=== PATIENT | male | born 1940 | race Caucasian/White ===

== ENCOUNTER 2017-11-08 17:02 | Inpatient (IN) | payer OTHER ==
[~2017-11-08] VITALS: Ht 175.3 cm; Wt 70.0 kg
[~2017-11-08 17:02] MED LIST changes: -ACET325 PO; -BISA5EC PO; -HYDR1TAB94 PO; -HYDRA25 PO; -Hair, Skin & N1 EACH PO; -METCAR500 PO; -PROBIOTIC & AC1 EACH PO; -Prinivil10 MG PO; -TAMS.4ER PO; -TRAZ50 PO
[2017-11-08 18:55] LABS: BASOPHILS ABSOLUTE AUTO 0.03 K/mm3 (0.00-0.23); BASOPHILS PERCENT AUTO 0 % (0-2); EOSINOPHILS ABSOLUTE AUTO 0.01 K/mm3 (0.00-0.68); EOSINOPHILS PERCENT AUTO 0 % (0-6); Hematocrit 39.7 % (37.0-53.0); Hemoglobin 13.2 g/dL (13.5-17.5); IMMATURE GRAN ABSOLUTE AUTO 0.03 K/mm3 (0.00-0.10); IMMATURE GRAN PERCENT AUTO 0 % (0-1); LYMPHOCYTES ABSOLUTE AUTO 0.97 K/mm3 (0.84-5.20); LYMPHOCYTES PERCENT AUTO 9 % (21-46); MONOCYTES ABSOLUTE AUTO 0.82 K/mm3 (0.16-1.47); MONOCYTES PERCENT AUTO 8 % (4-13); Mean Corpuscular HGB 29.9 pg (26.0-34.0); Mean Corpuscular HGB Conc 33.2 g/dL (31.5-36.5); Mean Corpuscular Volume 90 fL (80-100); Mean Platelet Volume 10.5 fL (9.1-12.4); NEUTROPHILS ABSOLUTE AUTO 8.55 K/mm3 (1.96-9.15); NEUTROPHILS PERCENT AUTO 82 % (41-73); Platelet Count 181 K/mm3 (150-400); RDW Coefficient Variation 12.7 % (11.7-14.2); RDW Standard Deviation 41.8 fL (35.1-46.3); Red Blood Cell Count 4.42 M/mm3 (4.30-5.90); White Blood Cell Count 10.41 K/mm3 (4.00-11.30)
[2017-11-08 19:07] LABS: Alanine Aminotransfer (ALT/SGP 15 U/L (12-78); Albumin, Blood 3.4 g/dL (3.4-5.0); Albumin/Globulin Ratio 0.8 (0.8-1.8); Alk Phos 78 U/L (50-136); Anion Gap 9 mmol/L (6-16); Aspartate Aminotrans (AST/SGOT 16 U/L (12-37); Bilirubin, Total 0.7 mg/dL (0.1-1.0); Blood Urea Nitrogen 11 mg/dL (8-24); Bun/Creatinine Ratio 15.7 (12.0-20.0); CO2, Blood 26 mmol/L (21-32); Calcium, Blood 9.1 mg/dL (8.5-10.1); Chloride, Blood 105 mmol/L (98-108); Glomerular Filtration Rate >60 (60-); Glucose, Blood 133 mg/dL (70-99); Sodium, Blood 140 mmol/L (136-145); Total Protein, Blood 7.4 g/dL (6.4-8.2)
[2017-11-09 05:02] LABS: BASOPHILS ABSOLUTE AUTO 0.02 K/mm3 (0.00-0.23); BASOPHILS PERCENT AUTO 0 % (0-2); EOSINOPHILS ABSOLUTE AUTO 0.06 K/mm3 (0.00-0.68); EOSINOPHILS PERCENT AUTO 1 % (0-6); Hematocrit 33.5 % (37.0-53.0); Hemoglobin 11.1 g/dL (13.5-17.5); IMMATURE GRAN ABSOLUTE AUTO 0.02 K/mm3 (0.00-0.10); IMMATURE GRAN PERCENT AUTO 0 % (0-1); LYMPHOCYTES ABSOLUTE AUTO 1.34 K/mm3 (0.84-5.20); LYMPHOCYTES PERCENT AUTO 16 % (21-46); MONOCYTES ABSOLUTE AUTO 0.82 K/mm3 (0.16-1.47); MONOCYTES PERCENT AUTO 10 % (4-13); Mean Corpuscular HGB 29.6 pg (26.0-34.0); Mean Corpuscular HGB Conc 33.1 g/dL (31.5-36.5); Mean Corpuscular Volume 89 fL (80-100); Mean Platelet Volume 10.8 fL (9.1-12.4); NEUTROPHILS ABSOLUTE AUTO 5.97 K/mm3 (1.96-9.15); NEUTROPHILS PERCENT AUTO 73 % (41-73); Platelet Count 169 K/mm3 (150-400); RDW Coefficient Variation 12.7 % (11.7-14.2); RDW Standard Deviation 41.5 fL (35.1-46.3); Red Blood Cell Count 3.75 M/mm3 (4.30-5.90); White Blood Cell Count 8.23 K/mm3 (4.00-11.30)
[2017-11-09 05:41] LABS: Albumin, Blood 2.6 g/dL (3.4-5.0); Anion Gap 6 mmol/L (6-16); Blood Urea Nitrogen 14 mg/dL (8-24); Bun/Creatinine Ratio 18.3 (12.0-20.0); CO2, Blood 29 mmol/L (21-32); Calcium, Blood 8.4 mg/dL (8.5-10.1); Chloride, Blood 107 mmol/L (98-108); Creatinine, Blood 0.77 mg/dL (0.60-1.20); Glomerular Filtration Rate >60 (60-); Glucose, Blood 129 mg/dL (70-99); Phosphorus, Blood 2.8 mg/dL (2.5-4.9); Sodium, Blood 142 mmol/L (136-145)
[2017-11-10 04:22] LABS: BASOPHILS ABSOLUTE AUTO 0.05 K/mm3 (0.00-0.23); BASOPHILS PERCENT AUTO 1 % (0-2); EOSINOPHILS ABSOLUTE AUTO 0.12 K/mm3 (0.00-0.68); EOSINOPHILS PERCENT AUTO 1 % (0-6); Hematocrit 34.2 % (37.0-53.0); Hemoglobin 11.5 g/dL (13.5-17.5); IMMATURE GRAN ABSOLUTE AUTO 0.03 K/mm3 (0.00-0.10); IMMATURE GRAN PERCENT AUTO 0 % (0-1); LYMPHOCYTES PERCENT AUTO 16 % (21-46); MONOCYTES ABSOLUTE AUTO 0.93 K/mm3 (0.16-1.47); MONOCYTES PERCENT AUTO 9 % (4-13); Mean Corpuscular HGB 30.3 pg (26.0-34.0); Mean Corpuscular HGB Conc 33.6 g/dL (31.5-36.5); Mean Corpuscular Volume 90 fL (80-100); Mean Platelet Volume 10.5 fL (9.1-12.4); NEUTROPHILS ABSOLUTE AUTO 7.67 K/mm3 (1.96-9.15); NEUTROPHILS PERCENT AUTO 73 % (41-73); Platelet Count 172 K/mm3 (150-400); RDW Coefficient Variation 12.7 % (11.7-14.2); RDW Standard Deviation 41.9 fL (35.1-46.3)
[2017-11-10 04:40] LABS: Anion Gap 7 mmol/L (6-16); Blood Urea Nitrogen 19 mg/dL (8-24); Bun/Creatinine Ratio 22.4 (12.0-20.0); CO2, Blood 28 mmol/L (21-32); Calcium, Blood 8.2 mg/dL (8.5-10.1); Chloride, Blood 107 mmol/L (98-108); Creatinine, Blood 0.85 mg/dL (0.60-1.20); Glomerular Filtration Rate >60 (60-); Glucose, Blood 104 mg/dL (70-99); Potassium, Blood 4.1 mmol/L (3.5-5.5); Sodium, Blood 142 mmol/L (136-145)
[2017-11-12 04:32] LABS: BASOPHILS ABSOLUTE AUTO 0.03 K/mm3 (0.00-0.23); BASOPHILS PERCENT AUTO 0 % (0-2); EOSINOPHILS ABSOLUTE AUTO 0.19 K/mm3 (0.00-0.68); EOSINOPHILS PERCENT AUTO 2 % (0-6); Hematocrit 35.3 % (37.0-53.0); Hemoglobin 11.6 g/dL (13.5-17.5); IMMATURE GRAN ABSOLUTE AUTO 0.05 K/mm3 (0.00-0.10); IMMATURE GRAN PERCENT AUTO 0 % (0-1); LYMPHOCYTES ABSOLUTE AUTO 1.35 K/mm3 (0.84-5.20); LYMPHOCYTES PERCENT AUTO 12 % (21-46); MONOCYTES ABSOLUTE AUTO 1.09 K/mm3 (0.16-1.47); MONOCYTES PERCENT AUTO 10 % (4-13); Mean Corpuscular HGB 29.6 pg (26.0-34.0); Mean Corpuscular HGB Conc 32.9 g/dL (31.5-36.5); Mean Corpuscular Volume 90 fL (80-100); Mean Platelet Volume 10.1 fL (9.1-12.4); NEUTROPHILS ABSOLUTE AUTO 8.74 K/mm3 (1.96-9.15); NEUTROPHILS PERCENT AUTO 76 % (41-73); Platelet Count 226 K/mm3 (150-400); RDW Coefficient Variation 12.7 % (11.7-14.2); RDW Standard Deviation 41.7 fL (35.1-46.3); Red Blood Cell Count 3.92 M/mm3 (4.30-5.90); White Blood Cell Count 11.45 K/mm3 (4.00-11.30)
[2017-11-12 04:49] LABS: Anion Gap 6 mmol/L (6-16); Blood Urea Nitrogen 23 mg/dL (8-24); Bun/Creatinine Ratio 24.9 (12.0-20.0); CO2, Blood 30 mmol/L (21-32); Calcium, Blood 8.6 mg/dL (8.5-10.1); Chloride, Blood 104 mmol/L (98-108); Creatinine, Blood 0.92 mg/dL (0.60-1.20); Glomerular Filtration Rate >60 (60-); Glucose, Blood 121 mg/dL (70-99); Potassium, Blood 4.2 mmol/L (3.5-5.5); Sodium, Blood 140 mmol/L (136-145)
[2017-11-15] MEDS ORDERED: ACET325 PO (10:21)
[2017-11-15] MEDS ORDERED: Prinivil10 MG PO (10:22)
[2017-11-15] MEDS ORDERED: TAMS.4ER PO (10:22)
[2017-11-15] MEDS ORDERED: HYDR1TAB94 PO (10:23)
== END 2017-11-15 12:47 | DRG 504 ==
LOC: ER 17:02 → MEDS 23:13 → ENPENDDIS 11-15 10:00 → MEDS 11-15 12:47
PROVIDERS: Emergency Medicine; Family Medicine; Hospitalist; Internal Medicine; Podiatrist Foot & Ankle Surgery
PROC: 3E0234Z Introduction of Serum, Toxoid and Vaccine into Muscle, Percutaneous Approach (ICD-10-PCS; 2017-11-09)
PROC: 0Y6S0Z0 Detachment at Left 2nd Toe, Complete, Open Approach (ICD-10-PCS; principal; 2017-11-11 07:30)
PROC: 0Y6U0Z0 Detachment at Left 3rd Toe, Complete, Open Approach (ICD-10-PCS; 2017-11-11 07:30)
DX: M86.172 Other acute osteomyelitis, left ankle and foot (principal); I96 Gangrene, not elsewhere classified; L03.116 Cellulitis of left lower limb; L97.519 Non-pressure chronic ulcer of other part of right foot with unspecified severity; Z23 Encounter for immunization; N40.1 Benign prostatic hyperplasia with lower urinary tract symptoms; R33.8 Other retention of urine
CPT/HCPCS: 36415; 51702; 73630; 80048; 80053; 80069; 82947; 83605; 85025; 85651; 87040; 87071; 87075; 87077; 87147; 87186; 87205; 88305; 88311; 93005; 93010; 93922; 96365; 97116; 97162; 97530; 99285; G8978; G8979; J0171; J0690; J2250; J2370; J2543; J3010; J7030; J7120

== ENCOUNTER → 2017-11-08 | Outpatient (CLI) | payer OTHER ==
[~2017-11-08] MED LIST: ACET325 PO; BISA5EC PO; HYDR1TAB94 PO; HYDRA25 PO; Hair, Skin & N1 EACH PO; METCAR500 PO; OXYACE5T PO; PROBIOTIC & AC1 EACH PO; PROM25 PO; Prinivil10 MG PO; SILSUL1TC TOP; TAMS.4ER PO; TRAZ50 PO
== END | disposition home or self-care (01) ==
LOC: LAB SHORT 17:31 → LAB 17:31
DX: L03.116 Cellulitis of left lower limb (principal)
CPT/HCPCS: 87070; 87077; 87147; 87186; 87205

== ENCOUNTER 2018-01-10 14:08 | Inpatient (IN) | payer OTHER ==
[~2018-01-10] VITALS: Ht 175.3 cm; Wt 69.9 kg
[~2018-01-10 14:08] MED LIST changes: +ACET325 PO; +HYDR1TAB94 PO; +Prinivil10 MG PO; +TAMS.4ER PO
[2018-01-10] MEDS ORDERED: BISA5EC PO (14:59)
[2018-01-10] MEDS ORDERED: Hair, Skin & N1 EACH PO (14:59)
[2018-01-10] MEDS ORDERED: PROBIOTIC & AC1 EACH PO (14:59)
[2018-01-10 15:46] LABS: BASOPHILS ABSOLUTE AUTO 0.03 K/mm3 (0.00-0.23); BASOPHILS PERCENT AUTO 0 % (0-2); EOSINOPHILS PERCENT AUTO 0 % (0-6); Hematocrit 41.7 % (37.0-53.0); IMMATURE GRAN ABSOLUTE AUTO 0.07 K/mm3 (0.00-0.10); IMMATURE GRAN PERCENT AUTO 0 % (0-1); LYMPHOCYTES ABSOLUTE AUTO 0.85 K/mm3 (0.84-5.20); LYMPHOCYTES PERCENT AUTO 4 % (21-46); MONOCYTES ABSOLUTE AUTO 0.66 K/mm3 (0.16-1.47); MONOCYTES PERCENT AUTO 3 % (4-13); Mean Corpuscular HGB 29.5 pg (26.0-34.0); Mean Corpuscular HGB Conc 33.6 g/dL (31.5-36.5); Mean Corpuscular Volume 88 fL (80-100); Mean Platelet Volume 10.7 fL (9.1-12.4); NEUTROPHILS ABSOLUTE AUTO 17.63 K/mm3 (1.96-9.15); NEUTROPHILS PERCENT AUTO 92 % (41-73); Platelet Count 196 K/mm3 (150-400); RDW Coefficient Variation 13.2 % (11.7-14.2); RDW Standard Deviation 42.5 fL (35.1-46.3); Red Blood Cell Count 4.75 M/mm3 (4.30-5.90); White Blood Cell Count 19.24 K/mm3 (4.00-11.30)
[2018-01-10 15:59] LABS: Source, Urine Catheter
[2018-01-10 16:02] LABS: Alanine Aminotransfer (ALT/SGP 20 U/L (12-78); Albumin, Blood 3.8 g/dL (3.4-5.0); Albumin/Globulin Ratio 1.1 (0.8-1.8); Alk Phos 95 U/L (50-136); Anion Gap 7 mmol/L (6-16); Aspartate Aminotrans (AST/SGOT 30 U/L (12-37); Bilirubin, Total 0.9 mg/dL (0.1-1.0); Blood Urea Nitrogen 14 mg/dL (8-24); Bun/Creatinine Ratio 18.4 (12.0-20.0); CO2, Blood 25 mmol/L (21-32); Calcium, Blood 8.9 mg/dL (8.5-10.1); Chloride, Blood 109 mmol/L (98-108); Creatinine, Blood 0.76 mg/dL (0.60-1.20); Globulin, Blood 3.5 g/dL (2.2-4.0); Glomerular Filtration Rate >60 (60-); Glucose, Blood 135 mg/dL (70-99); Potassium, Blood 4.2 mmol/L (3.5-5.5); Sodium, Blood 141 mmol/L (136-145); Total Protein, Blood 7.3 g/dL (6.4-8.2)
[2018-01-10 16:04] LABS: Bilirubin, Urine Neg (Neg); Blood, Urine 5+ (Neg); Glucose Qualitative, Urine Neg (Neg); Ketones, Urine 2+ (Neg); Leukocyte Esterase, Urine Neg (Neg); Nitrite, Urine Neg (Neg); Protein, Urine 3+ (Neg); Urobilinogen, Urine NORM (Normal)
[2018-01-10 16:14] LABS: Appearance, Urine Clear (Clear); Color, Urine Yellow (P-Yellow); White Blood Cells, Urine 0-2 /hpf (0-5)
[2018-01-10 16:16] LABS: Bacteria Few /hpf; Squamous Epithelial Cells Not Seen /hpf (Few)
[2018-01-11 04:18] LABS: BASOPHILS ABSOLUTE AUTO 0.03 K/mm3 (0.00-0.23); BASOPHILS PERCENT AUTO 0 % (0-2); EOSINOPHILS PERCENT AUTO 0 % (0-6); Hematocrit 31.3 % (37.0-53.0); Hemoglobin 10.5 g/dL (13.5-17.5); IMMATURE GRAN ABSOLUTE AUTO 0.03 K/mm3 (0.00-0.10); IMMATURE GRAN PERCENT AUTO 0 % (0-1); LYMPHOCYTES ABSOLUTE AUTO 1.54 K/mm3 (0.84-5.20); LYMPHOCYTES PERCENT AUTO 12 % (21-46); MONOCYTES ABSOLUTE AUTO 1.28 K/mm3 (0.16-1.47); MONOCYTES PERCENT AUTO 10 % (4-13); Mean Corpuscular HGB 29.8 pg (26.0-34.0); Mean Corpuscular HGB Conc 33.5 g/dL (31.5-36.5); Mean Corpuscular Volume 89 fL (80-100); Mean Platelet Volume 10.8 fL (9.1-12.4); NEUTROPHILS ABSOLUTE AUTO 9.57 K/mm3 (1.96-9.15); NEUTROPHILS PERCENT AUTO 77 % (41-73); Platelet Count 155 K/mm3 (150-400); RDW Coefficient Variation 13.7 % (11.7-14.2); RDW Standard Deviation 44.4 fL (35.1-46.3); Red Blood Cell Count 3.52 M/mm3 (4.30-5.90); White Blood Cell Count 12.45 K/mm3 (4.00-11.30)
[2018-01-11 04:31] LABS: Bun/Creatinine Ratio 21.6 (12.0-20.0); Calcium, Blood 8.3 mg/dL (8.5-10.1); Creatinine, Blood 1.25 mg/dL (0.60-1.20); International Normalized Ratio 1.1; Potassium, Blood 4.5 mmol/L (3.5-5.5); Prothrombin Time Results 11.5 Sec (9.7-11.5)
[2018-01-12 04:10] LABS: BASOPHILS ABSOLUTE AUTO 0.03 K/mm3 (0.00-0.23); BASOPHILS PERCENT AUTO 0 % (0-2); EOSINOPHILS ABSOLUTE AUTO 0.04 K/mm3 (0.00-0.68); EOSINOPHILS PERCENT AUTO 0 % (0-6); Hematocrit 27.8 % (37.0-53.0); Hemoglobin 9.1 g/dL (13.5-17.5); IMMATURE GRAN ABSOLUTE AUTO 0.05 K/mm3 (0.00-0.10); IMMATURE GRAN PERCENT AUTO 0 % (0-1); LYMPHOCYTES ABSOLUTE AUTO 1.61 K/mm3 (0.84-5.20); LYMPHOCYTES PERCENT AUTO 14 % (21-46); MONOCYTES ABSOLUTE AUTO 1.27 K/mm3 (0.16-1.47); MONOCYTES PERCENT AUTO 11 % (4-13); Mean Corpuscular HGB 30.2 pg (26.0-34.0); Mean Corpuscular HGB Conc 32.7 g/dL (31.5-36.5); Mean Corpuscular Volume 92 fL (80-100); Mean Platelet Volume 10.7 fL (9.1-12.4); NEUTROPHILS ABSOLUTE AUTO 8.16 K/mm3 (1.96-9.15); NEUTROPHILS PERCENT AUTO 73 % (41-73); Platelet Count 117 K/mm3 (150-400); RDW Coefficient Variation 13.8 % (11.7-14.2); RDW Standard Deviation 46.9 fL (35.1-46.3); Red Blood Cell Count 3.01 M/mm3 (4.30-5.90); White Blood Cell Count 11.16 K/mm3 (4.00-11.30)
[2018-01-12 04:29] LABS: Anion Gap 4 mmol/L (6-16); Blood Urea Nitrogen 28 mg/dL (8-24); Bun/Creatinine Ratio 23.9 (12.0-20.0); CO2, Blood 29 mmol/L (21-32); Chloride, Blood 108 mmol/L (98-108); Creatinine, Blood 1.17 mg/dL (0.60-1.20); Glomerular Filtration Rate >60 (60-); Glucose, Blood 129 mg/dL (70-99); Potassium, Blood 4.3 mmol/L (3.5-5.5); Sodium, Blood 141 mmol/L (136-145)
[2018-01-13 05:49] LABS: BASOPHILS ABSOLUTE AUTO 0.03 K/mm3 (0.00-0.23); BASOPHILS PERCENT AUTO 0 % (0-2); EOSINOPHILS ABSOLUTE AUTO 0.14 K/mm3 (0.00-0.68); EOSINOPHILS PERCENT AUTO 1 % (0-6); Hematocrit 25.6 % (37.0-53.0); Hemoglobin 8.5 g/dL (13.5-17.5); IMMATURE GRAN ABSOLUTE AUTO 0.05 K/mm3 (0.00-0.10); IMMATURE GRAN PERCENT AUTO 0 % (0-1); LYMPHOCYTES ABSOLUTE AUTO 1.41 K/mm3 (0.84-5.20); LYMPHOCYTES PERCENT AUTO 12 % (21-46); MONOCYTES ABSOLUTE AUTO 1.21 K/mm3 (0.16-1.47); MONOCYTES PERCENT AUTO 11 % (4-13); Mean Corpuscular HGB 30.4 pg (26.0-34.0); Mean Corpuscular HGB Conc 33.2 g/dL (31.5-36.5); Mean Corpuscular Volume 91 fL (80-100); Mean Platelet Volume 11.3 fL (9.1-12.4); NEUTROPHILS ABSOLUTE AUTO 8.71 K/mm3 (1.96-9.15); NEUTROPHILS PERCENT AUTO 75 % (41-73); Platelet Count 112 K/mm3 (150-400); RDW Coefficient Variation 13.6 % (11.7-14.2); RDW Standard Deviation 45.9 fL (35.1-46.3); White Blood Cell Count 11.55 K/mm3 (4.00-11.30)
== END 2018-01-13 15:10 | DRG 482 ==
LOC: ER 14:08 → SURS 15:10
PROVIDERS: Emergency Medicine; Internal Medicine; Orthopaedic Surgery
PROC: BQ11ZZZ Fluoroscopy of Left Hip (ICD-10-PCS; 2018-01-11)
PROC: 0QH734Z Insertion of Internal Fixation Device into Left Upper Femur, Percutaneous Approach (ICD-10-PCS; principal; 2018-01-11 12:30)
DX: S72.102A Unspecified trochanteric fracture of left femur, initial encounter for closed fracture (principal); W19.XXXA Unspecified fall, initial encounter; I10 Essential (primary) hypertension; N40.0 Benign prostatic hyperplasia without lower urinary tract symptoms; Z89.422 Acquired absence of other left toe(s); Z79.899 Other long term (current) drug therapy
CPT/HCPCS: 36415; 51702; 71045; 72192; 80048; 80053; 81001; 85025; 85610; 85730; 93005; 93010; 96372; 96374; 96376; 97110; 97162; 97165; 97530; 97535; 99285; C1713; C1769; G8978; G8979; G8987; G8988; J0690; J1650; J3010; J7030; J7120

== ENCOUNTER 2018-03-13 16:58 | Emergency (ER) | payer OTHER ==
[~2018-03-13] VITALS: Ht 175.3 cm; Wt 70.3 kg
[~2018-03-13 16:58] MED LIST changes: +BISA5EC PO; +Hair, Skin & N1 EACH PO; +PROBIOTIC & AC1 EACH PO
[2018-03-13] MEDS ORDERED: TRAZ50 PO (17:15)
[2018-03-13] MEDS ORDERED: METCAR500 PO (17:15)
[2018-03-13] MEDS ORDERED: HYDRA25 PO (17:15)
[2018-03-13 18:25] LABS: Calcium, Ionized (POC) 1.21 mmol/L (1.10-1.46); Chloride (POC) 102 mmol/L (98-108); Creatinine (POC) 0.9 mg/dL (0.8-1.3); Glucose (ISTAT POC) 120 mg/dL (70-99); Hemoglobin (POC) 10.9 g/dL (13.5-17.5); Sodium (POC) 142 mmol/L (135-148); Total CO2 (POC) 27 mmol/L (21-32)
== END 2018-03-13 22:42 | disposition home or self-care (01) ==
LOC: ER 16:58
PROVIDERS: Emergency Medicine
DX: I10 Essential (primary) hypertension (principal); Z79.899 Other long term (current) drug therapy; Z96.642 Presence of left artificial hip joint
CPT/HCPCS: 71260; 80047; 84484; 85014; 93005; 93010; 96374; 96375; 99285; J0360; J2060; Q9967

== ENCOUNTER → 2019-07-02 | Outpatient (CLI) | payer OTHER ==
[~2019-07-02] MED LIST changes: +HYDRA25 PO; +METCAR500 PO; +TRAZ50 PO
[2019-07-02 14:48] LABS: Bilirubin, Urine Neg (Neg); Blood, Urine Neg (Neg); Glucose Qualitative, Urine Neg (Neg); Ketones, Urine Neg (Neg); Leukocyte Esterase, Urine Neg (Neg); Nitrite, Urine Neg (Neg); Protein, Urine Neg (Neg); Urobilinogen, Urine NORM (Normal)
[2019-07-02 15:08] LABS: Appearance, Urine Clear (Clear); Color, Urine Yellow (P-Yellow)
== END | disposition home or self-care (01) ==
LOC: LAB 11:33 → LAB SHORT 11:33
PROVIDERS: Internal Medicine
DX: N39.0 Urinary tract infection, site not specified (principal)
CPT/HCPCS: 81003

== ENCOUNTER → 2019-08-17 | Outpatient (CLI) | payer OTHER ==
[~2019-08-17] MED LIST changes: +AMLO10 PO; +Anti-Diarrheal2 MG; +BISA10S PR; +Calmoseptine Oi71 GM; +Fleet Enema132 ML PR; +Flomax0.4 MG PO; +HYDCHL25 PO; +LACT10SY PO; +MILK OF MA400 MG/5 M PO; +Muri-Lube Minera2 ML; +ONDA4ODT MM; +SERT25 PO; +TRIA15CR3 TOP; +TUMS500 MG PO
[2019-08-17 20:47] LABS: Bilirubin, Urine Neg (Neg); Blood, Urine 3+ (Neg); Glucose Qualitative, Urine Neg (Neg); Ketones, Urine Neg (Neg); Leukocyte Esterase, Urine 1+ (Neg); Nitrite, Urine Neg (Neg); Protein, Urine Neg (Neg); Specific Gravity, Urine 1.015 (1.003-1.022); Urobilinogen, Urine NORM (Normal)
[2019-08-17 20:56] LABS: Appearance, Urine Hazy (Clear); Color, Urine Yellow (P-Yellow)
[2019-08-17 21:05] LABS: Bacteria Few /hpf; Squamous Epithelial Cells Few /hpf (Few)
== END ==
LOC: LAB SHORT 14:05 → LAB 14:05
PROVIDERS: Internal Medicine
DX: N39.0 Urinary tract infection, site not specified (principal)
CPT/HCPCS: 81001; 87086

== ENCOUNTER 2019-08-18 07:04 | Emergency (ER) | payer OTHER ==
[~2019-08-18] VITALS: Ht 175.3 cm; Wt 81.2 kg
[~2019-08-18 07:04] MED LIST changes: -AMLO10 PO; -Anti-Diarrheal2 MG; -BISA10S PR; -Calmoseptine Oi71 GM; -Fleet Enema132 ML PR; -Flomax0.4 MG PO; -HYDCHL25 PO; -LACT10SY PO; -MILK OF MA400 MG/5 M PO; -Muri-Lube Minera2 ML; -ONDA4ODT MM; -SERT25 PO; -TRIA15CR3 TOP; -TUMS500 MG PO
[2019-08-18] MEDS ORDERED: AMLO10 PO (07:09)
[2019-08-18] MEDS ORDERED: HYDCHL25 PO (07:10)
[2019-08-18] MEDS ORDERED: Muri-Lube Minera2 ML (07:10)
[2019-08-18] MEDS ORDERED: TAMS.4ER PO (07:11)
[2019-08-18] MEDS ORDERED: SERT25 PO (07:11)
[2019-08-18] MEDS ORDERED: TRIA15CR3 TOP (07:12)
[2019-08-18] MEDS ORDERED: TRAZ50 PO (07:12)
[2019-08-18] MEDS ORDERED: TUMS500 MG PO (07:12)
[2019-08-18] MEDS ORDERED: MILK OF MA400 MG/5 M PO (07:13)
[2019-08-18] MEDS ORDERED: HYDRA25 PO (07:13)
[2019-08-18] MEDS ORDERED: Anti-Diarrheal2 MG (07:13)
[2019-08-18] MEDS ORDERED: Calmoseptine Oi71 GM (07:14)
[2019-08-18] MEDS ORDERED: Fleet Enema132 ML PR (07:14)
[2019-08-18] MEDS ORDERED: ACET325 PO (07:15)
[2019-08-18] MEDS ORDERED: BISA10S PR (07:15)
[2019-08-18 09:44] LABS: BASOPHILS ABSOLUTE AUTO 0.04 K/mm3 (0.00-0.23); BASOPHILS PERCENT AUTO 0 % (0-2); EOSINOPHILS ABSOLUTE AUTO 0.02 K/mm3 (0.00-0.68); EOSINOPHILS PERCENT AUTO 0 % (0-6); Hematocrit 36.5 % (37.0-53.0); Hemoglobin 11.9 g/dL (13.5-17.5); IMMATURE GRAN ABSOLUTE AUTO 0.04 K/mm3 (0.00-0.10); IMMATURE GRAN PERCENT AUTO 0 % (0-1); LYMPHOCYTES PERCENT AUTO 9 % (21-46); MONOCYTES ABSOLUTE AUTO 1.17 K/mm3 (0.16-1.47); MONOCYTES PERCENT AUTO 9 % (4-13); Mean Corpuscular HGB 30.6 pg (26.0-34.0); Mean Corpuscular HGB Conc 32.6 g/dL (31.5-36.5); Mean Corpuscular Volume 94 fL (80-100); Mean Platelet Volume 9.9 fL (9.1-12.4); NEUTROPHILS PERCENT AUTO 81 % (41-73); Platelet Count 186 K/mm3 (150-400); RDW Standard Deviation 44.8 fL (35.1-46.3); Red Blood Cell Count 3.89 M/mm3 (4.30-5.90); White Blood Cell Count 12.97 K/mm3 (4.00-11.30)
[2019-08-18 09:57] LABS: Source, Urine Clean Catch
[2019-08-18 10:06] LABS: Troponin I <0.015 ng/mL (0.000-0.040)
[2019-08-18 10:07] LABS: Alanine Aminotransfer (ALT/SGP 21 U/L (12-78); Albumin, Blood 3.5 g/dL (3.4-5.0); Alk Phos 74 U/L (50-136); Anion Gap 6 mmol/L (6-16); Aspartate Aminotrans (AST/SGOT 28 U/L (12-37); Bilirubin, Total 0.7 mg/dL (0.1-1.0); Blood Urea Nitrogen 37 mg/dL (8-24); Bun/Creatinine Ratio 18.8 (12.0-20.0); CO2, Blood 26 mmol/L (21-32); Calcium, Blood 9.1 mg/dL (8.5-10.1); Chloride, Blood 111 mmol/L (98-108); Creatinine, Blood 1.97 mg/dL (0.60-1.20); Globulin, Blood 3.5 g/dL (2.2-4.0); Glomerular Filtration Rate 35 (60-); Glucose, Blood 115 mg/dL (70-99); Potassium, Blood 4.4 mmol/L (3.5-5.5); Sodium, Blood 143 mmol/L (136-145)
[2019-08-18 10:17] LABS: Appearance, Urine Clear (Clear); Bilirubin, Urine Neg (Neg); Blood, Urine 5+ (Neg); Color, Urine Yellow (P-Yellow); Glucose Qualitative, Urine Neg (Neg); Ketones, Urine Neg (Neg); Leukocyte Esterase, Urine 1+ (Neg); Nitrite, Urine Neg (Neg); Protein, Urine Neg (Neg); Specific Gravity, Urine 1.015 (1.003-1.022); Urobilinogen, Urine NORM (Normal)
[2019-08-18 10:27] LABS: Bacteria Rare /hpf; Squamous Epithelial Cells Not Seen /hpf (Few); Uric Acid Crystals Mod /hpf
[2019-08-18] MEDS ORDERED: ONDA4ODT MM (10:41)
[2019-08-18] MEDS ORDERED: HYDR1TAB94 PO (10:41)
[2019-08-18] MEDS ORDERED: Flomax0.4 MG PO (10:41)
[2019-08-18] MEDS ORDERED: LACT10SY PO (10:56)
== END 2019-08-18 12:02 | disposition home or self-care (01) ==
LOC: ER 07:04
PROVIDERS: Physician Assistant
DX: N13.2 Hydronephrosis with renal and ureteral calculous obstruction (principal); D64.9 Anemia, unspecified; Z79.899 Other long term (current) drug therapy
CPT/HCPCS: 36415; 74022; 74176; 80053; 81001; 83690; 84484; 85025; 87086; 93005; 93010; 96361; 96374; 99284-25; J2405; J7030

== ENCOUNTER 2019-08-20 01:58 | Emergency (ER) | payer OTHER ==
[~2019-08-20] VITALS: Ht 165.1 cm; Wt 81.7 kg
[~2019-08-20 01:58] MED LIST changes: +AMLO10 PO; +Anti-Diarrheal2 MG; +BISA10S PR; +Calmoseptine Oi71 GM; +Fleet Enema132 ML PR; +Flomax0.4 MG PO; +HYDCHL25 PO; +LACT10SY PO; +MILK OF MA400 MG/5 M PO; +Muri-Lube Minera2 ML; +ONDA4ODT MM; +SERT25 PO; +TRIA15CR3 TOP; +TUMS500 MG PO
[2019-08-20 02:25] LABS: Source, Urine Clean Catch
[2019-08-20 02:29] LABS: Bilirubin, Urine Neg (Neg); Blood, Urine 5+ (Neg); Glucose Qualitative, Urine Neg (Neg); Ketones, Urine 2+ (Neg); Leukocyte Esterase, Urine 2+ (Neg); Nitrite, Urine Neg (Neg); Protein, Urine 2+ (Neg); Urobilinogen, Urine NORM (Normal)
[2019-08-20 02:44] LABS: Amorphous Light (0-Heavy); Appearance, Urine Hazy (Clear); Bacteria Few /hpf; Color, Urine Yellow (P-Yellow); Mucus Light (0-Heavy); Red Blood Cells, Urine 25-50 /hpf (0-2); Squamous Epithelial Cells Rare /hpf (Few)
[2019-08-20 02:44] LABS: BASOPHILS ABSOLUTE AUTO 0.03 K/mm3 (0.00-0.23); BASOPHILS PERCENT AUTO 0 % (0-2); EOSINOPHILS ABSOLUTE AUTO 0.01 K/mm3 (0.00-0.68); EOSINOPHILS PERCENT AUTO 0 % (0-6); Hematocrit 34.4 % (37.0-53.0); Hemoglobin 11.3 g/dL (13.5-17.5); IMMATURE GRAN ABSOLUTE AUTO 0.07 K/mm3 (0.00-0.10); IMMATURE GRAN PERCENT AUTO 0 % (0-1); LYMPHOCYTES ABSOLUTE AUTO 1.15 K/mm3 (0.84-5.20); LYMPHOCYTES PERCENT AUTO 7 % (21-46); MONOCYTES ABSOLUTE AUTO 1.79 K/mm3 (0.16-1.47); MONOCYTES PERCENT AUTO 10 % (4-13); Mean Corpuscular HGB 30.4 pg (26.0-34.0); Mean Corpuscular HGB Conc 32.8 g/dL (31.5-36.5); Mean Corpuscular Volume 93 fL (80-100); Mean Platelet Volume 10.5 fL (9.1-12.4); NEUTROPHILS ABSOLUTE AUTO 14.14 K/mm3 (1.96-9.15); NEUTROPHILS PERCENT AUTO 82 % (41-73); Platelet Count 187 K/mm3 (150-400); RDW Coefficient Variation 12.8 % (11.7-14.2); RDW Standard Deviation 43.8 fL (35.1-46.3); Red Blood Cell Count 3.72 M/mm3 (4.30-5.90); White Blood Cell Count 17.19 K/mm3 (4.00-11.30)
[2019-08-20 03:02] LABS: Albumin, Blood 3.1 g/dL (3.4-5.0); Albumin/Globulin Ratio 0.8 (0.8-1.8); Bilirubin, Total 0.7 mg/dL (0.1-1.0); Bun/Creatinine Ratio 17.9 (12.0-20.0); Calcium, Blood 8.8 mg/dL (8.5-10.1); Creatinine, Blood 1.96 mg/dL (0.60-1.20); Potassium, Blood 4.5 mmol/L (3.5-5.5); Total Protein, Blood 7.1 g/dL (6.4-8.2)
== END 2019-08-20 05:10 | disposition short-term general hospital (02) ==
LOC: ER 01:58
PROVIDERS: Emergency Medicine
DX: K22.8 Other specified diseases of esophagus (principal); D64.9 Anemia, unspecified; Z79.899 Other long term (current) drug therapy
CPT/HCPCS: 36415; 74176; 80053; 81001; 85025; 87086; 93005; 93010; 96361; 96365; 99285-25; J0696; J7120

== ENCOUNTER 2020-02-09 12:12 | Emergency (ER) | payer OTHER ==
[~2020-02-09] VITALS: Ht 172.7 cm; Wt 72.6 kg
[2020-02-12 08:30] LABS: Calcium, Ionized (POC) 1.19 mmol/L (1.10-1.46); Chloride (POC) 102 mmol/L (98-108); Creatinine (POC) 1.3 mg/dL (0.8-1.3); Glucose (ISTAT POC) 140 mg/dL (70-99); Hemoglobin (POC) 12.2 g/dL (13.5-17.5); Sodium (POC) 137 mmol/L (135-148); Total CO2 (POC) 25 mmol/L (21-32)
== END 2020-02-09 15:08 | disposition home or self-care (01) ==
LOC: ER 12:12
PROVIDERS: Emergency Medicine
DX: M79.672 Pain in left foot (principal); R25.1 Tremor, unspecified; D64.9 Anemia, unspecified; Z79.899 Other long term (current) drug therapy; H53.8 Other visual disturbances
CPT/HCPCS: 80047; 85014; 99283

== ENCOUNTER 2020-02-17 12:15 | Emergency (ER) | payer OTHER ==
[~2020-02-17] VITALS: Ht 172.7 cm; Wt 90.7 kg
[2020-02-17 13:34] LABS: BASOPHILS ABSOLUTE AUTO 0.02 K/mm3 (0.00-0.23); BASOPHILS PERCENT AUTO 0 % (0-2); EOSINOPHILS ABSOLUTE AUTO 0.06 K/mm3 (0.00-0.68); EOSINOPHILS PERCENT AUTO 1 % (0-6); Hematocrit 39.5 % (37.0-53.0); Hemoglobin 12.9 g/dL (13.5-17.5); IMMATURE GRAN ABSOLUTE AUTO 0.04 K/mm3 (0.00-0.10); IMMATURE GRAN PERCENT AUTO 1 % (0-1); LYMPHOCYTES ABSOLUTE AUTO 1.28 K/mm3 (0.84-5.20); LYMPHOCYTES PERCENT AUTO 16 % (21-46); MONOCYTES ABSOLUTE AUTO 0.61 K/mm3 (0.16-1.47); MONOCYTES PERCENT AUTO 8 % (4-13); Mean Corpuscular HGB 29.6 pg (26.0-34.0); Mean Corpuscular HGB Conc 32.7 g/dL (31.5-36.5); Mean Corpuscular Volume 91 fL (80-100); Mean Platelet Volume 9.7 fL (9.1-12.4); NEUTROPHILS ABSOLUTE AUTO 6.15 K/mm3 (1.96-9.15); NEUTROPHILS PERCENT AUTO 75 % (41-73); Platelet Count 168 K/mm3 (150-400); RDW Coefficient Variation 13.1 % (11.7-14.2); RDW Standard Deviation 43.9 fL (35.1-46.3); Red Blood Cell Count 4.36 M/mm3 (4.30-5.90); White Blood Cell Count 8.16 K/mm3 (4.00-11.30)
[2020-02-17 13:53] LABS: Anion Gap 2 mmol/L (6-16); Blood Urea Nitrogen 27 mg/dL (8-24); Bun/Creatinine Ratio 22.3 (12.0-20.0); CO2, Blood 28 mmol/L (21-32); Chloride, Blood 107 mmol/L (98-108); Creatinine, Blood 1.21 mg/dL (0.60-1.20); Glomerular Filtration Rate >60 (60-); Glucose, Blood 126 mg/dL (70-99); Potassium, Blood 4.5 mmol/L (3.5-5.5); Sodium, Blood 137 mmol/L (136-145)
[2020-02-17 15:11] LABS: Source, Urine Clean Catch
[2020-02-17 15:19] LABS: Bilirubin, Urine Neg (Neg); Blood, Urine 1+ (Neg); Glucose Qualitative, Urine Neg (Neg); Ketones, Urine Neg (Neg); Leukocyte Esterase, Urine Neg (Neg); Nitrite, Urine Neg (Neg); Protein, Urine Neg (Neg); Urobilinogen, Urine NORM (Normal)
[2020-02-17 15:34] LABS: Color, Urine Pale Yellow (P-Yellow)
[2020-02-17 15:35] LABS: Appearance, Urine Clear (Clear)
[2020-02-17 15:36] LABS: Bacteria Few /hpf; Red Blood Cells, Urine Not Seen /hpf (0-2); Squamous Epithelial Cells Not Seen /hpf (Few); White Blood Cells, Urine Not Seen /hpf (0-5)
[2020-02-17] MEDS ORDERED: Bactrim Ds Tab1 EACH PO (16:02)
[2020-02-18] MEDS ORDERED: SULTRIDS PO (13:10)
== END 2020-02-17 17:10 | disposition home or self-care (01) ==
LOC: ER 12:15
PROVIDERS: Emergency Medicine
DX: N39.0 Urinary tract infection, site not specified (principal); I12.9 Hypertensive chronic kidney disease with stage 1 through stage 4 chronic kidney disease, or unspecified chronic kidney disease; N18.9 Chronic kidney disease, unspecified; H43.399 Other vitreous opacities, unspecified eye; D63.1 Anemia in chronic kidney disease; Z79.899 Other long term (current) drug therapy
CPT/HCPCS: 36415; 51702; 51798; 70450; 71045; 80048; 81001; 85025; 93005; 93010; 99284-25; A9270-GY

== ENCOUNTER 2020-02-19 11:56 | Emergency (ER) | payer OTHER ==
[~2020-02-19] VITALS: Ht 177.8 cm; Wt 81.7 kg
[~2020-02-19 11:56] MED LIST changes: +Bactrim Ds Tab1 EACH PO; +SULTRIDS PO
[2020-02-20] MEDS ORDERED: FERSU300 PO (10:24)
[2020-02-20] MEDS ORDERED: FURO40 PO (10:25)
[2020-02-20] MEDS ORDERED: MINERAL OIL HEAV1 ML BOTHEARS (10:29)
[2020-02-20] MEDS ORDERED: PHENYTOIN SODI100 MG PO (10:31)
[2020-02-20] MEDS ORDERED: POTA10T PO (10:31)
[2020-02-20] MEDS ORDERED: HYDRA25 PO (13:08)
[2020-02-20] MEDS ORDERED: TAMS.4ER PO (13:11)
[2020-02-20] MEDS ORDERED: ZESTORETIC 20-1 EAC3 PO (15:47)
[2020-02-20] MEDS ORDERED: BISA10S PR (15:50)
[2020-02-20] MEDS ORDERED: LOPERAMIDE2 MG PO (15:51)
[2020-02-20] MEDS ORDERED: MILK OF MA400 MG/51 PO (15:52)
[2020-02-20] MEDS ORDERED: ONDA4ODT SL (15:54)
[2020-02-20] MEDS ORDERED: FLEET ENEMA133 ML PR (15:55)
[2020-02-20] MEDS ORDERED: CALMOSEPTINE OI71 GM TOP (15:56)
== END 2020-02-19 13:07 | disposition home or self-care (01) ==
LOC: ER 11:56
DX: H53.8 Other visual disturbances (principal); G25.3 Myoclonus; R56.9 Unspecified convulsions; Z79.899 Other long term (current) drug therapy; D64.9 Anemia, unspecified; I10 Essential (primary) hypertension; N40.0 Benign prostatic hyperplasia without lower urinary tract symptoms
CPT/HCPCS: 36415; 99283

== ENCOUNTER 2020-02-20 10:04 | Inpatient (IN) | payer OTHER ==
[~2020-02-20] VITALS: Ht 175.3 cm; Wt 80.0 kg
[2020-02-20] MEDS ORDERED: FERSU300 PO (10:24)
[2020-02-20] MEDS ORDERED: FURO40 PO (10:25)
[2020-02-20] MEDS ORDERED: MINERAL OIL HEAV1 ML BOTHEARS (10:29)
[2020-02-20] MEDS ORDERED: POTA10T PO (10:31)
[2020-02-20] MEDS ORDERED: PHENYTOIN SODI100 MG PO (10:31)
[2020-02-20 11:26] LABS: Alanine Aminotransfer (ALT/SGP 17 U/L (12-78); Albumin, Blood 3.1 g/dL (3.4-5.0); Albumin/Globulin Ratio 0.9 (0.8-1.8); Alk Phos 78 U/L (50-136); Anion Gap 5 mmol/L (6-16); Aspartate Aminotrans (AST/SGOT 21 U/L (12-37); Bilirubin, Total 0.4 mg/dL (0.1-1.0); Blood Urea Nitrogen 48 mg/dL (8-24); Bun/Creatinine Ratio 19.8 (12.0-20.0); CO2, Blood 29 mmol/L (21-32); Calcium, Blood 8.4 mg/dL (8.5-10.1); Chloride, Blood 103 mmol/L (98-108); Creatinine, Blood 2.43 mg/dL (0.60-1.20); Dilantin (Phenytoin), Total 0.6 ug/mL (10.0-20.0); Globulin, Blood 3.5 g/dL (2.2-4.0); Glomerular Filtration Rate 28 (60-); Glucose, Blood 112 mg/dL (70-99); Potassium, Blood 4.5 mmol/L (3.5-5.5); Sodium, Blood 137 mmol/L (136-145); Total Protein, Blood 6.6 g/dL (6.4-8.2)
[2020-02-20 12:33] LABS: Source, Urine Catheter
[2020-02-20 12:47] LABS: Bilirubin, Urine Neg (Neg); Blood, Urine Neg (Neg); Glucose Qualitative, Urine Neg (Neg); Ketones, Urine Neg (Neg); Leukocyte Esterase, Urine Neg (Neg); Nitrite, Urine Neg (Neg); Protein, Urine Neg (Neg); Urobilinogen, Urine NORM (Normal)
[2020-02-20 12:57] LABS: Appearance, Urine Clear (Clear); Color, Urine Pale Yellow (P-Yellow)
[2020-02-20 13:03] LABS: BASOPHILS ABSOLUTE AUTO 0.03 K/mm3 (0.00-0.23); BASOPHILS PERCENT AUTO 0 % (0-2); EOSINOPHILS ABSOLUTE AUTO 0.05 K/mm3 (0.00-0.68); EOSINOPHILS PERCENT AUTO 1 % (0-6); Hematocrit 36.8 % (37.0-53.0); Hemoglobin 12.1 g/dL (13.5-17.5); IMMATURE GRAN ABSOLUTE AUTO 0.04 K/mm3 (0.00-0.10); IMMATURE GRAN PERCENT AUTO 0 % (0-1); LYMPHOCYTES ABSOLUTE AUTO 1.17 K/mm3 (0.84-5.20); LYMPHOCYTES PERCENT AUTO 11 % (21-46); MONOCYTES ABSOLUTE AUTO 0.95 K/mm3 (0.16-1.47); MONOCYTES PERCENT AUTO 9 % (4-13); Mean Corpuscular HGB 29.4 pg (26.0-34.0); Mean Corpuscular HGB Conc 32.9 g/dL (31.5-36.5); Mean Corpuscular Volume 89 fL (80-100); Mean Platelet Volume 10.1 fL (9.1-12.4); NEUTROPHILS ABSOLUTE AUTO 8.49 K/mm3 (1.96-9.15); NEUTROPHILS PERCENT AUTO 79 % (41-73); Platelet Count 172 K/mm3 (150-400); RDW Coefficient Variation 13.5 % (11.7-14.2); RDW Standard Deviation 44.3 fL (35.1-46.3); Red Blood Cell Count 4.12 M/mm3 (4.30-5.90); White Blood Cell Count 10.73 K/mm3 (4.00-11.30)
[2020-02-20] MEDS ORDERED: HYDRA25 PO (13:08)
[2020-02-20] MEDS ORDERED: TAMS.4ER PO (13:11)
[2020-02-20 13:15] LABS: Creatinine, Urine Random 27.2 mg/dL (27.00-270.00)
--- NOTE | 2020-02-20 15:00 | NUR ---
PT ARRIVED TO ROOM AT 1440 FROM ED BY STRETCHER. WAS SHAKING AND HAD SEVERE TREMORS AND WAS ACTING LIKE HE WAS SHORT OF BREATH. REMOVED HIS MASK AND ENCOURAGED HIM TO BREATH IN THROUGH HIS NOSE AND OUT HIS MOUTH. ALSO LET HIM KNOW HE IS SAFE AND EXPLAINED WHAT WE WERE DOING PRIOR TO DOING IT. HIS TREMORS STOPPED AFTER ASSURING HIM.
[2020-02-20] MEDS ORDERED: ZESTORETIC 20-1 EAC3 PO (15:47)
[2020-02-20] MEDS ORDERED: BISA10S PR (15:50)
[2020-02-20] MEDS ORDERED: LOPERAMIDE2 MG PO (15:51)
[2020-02-20] MEDS ORDERED: MILK OF MA400 MG/51 PO (15:52)
[2020-02-20] MEDS ORDERED: ONDA4ODT SL (15:54)
[2020-02-20] MEDS ORDERED: FLEET ENEMA133 ML PR (15:55)
[2020-02-20] MEDS ORDERED: CALMOSEPTINE OI71 GM TOP (15:56)
--- NOTE | 2020-02-20 18:24 | NUR ---
SHIFT SUMMARY PT UP IN CHAIR. DINNER PLACED IN FRONT OF HIM AND HE SAID HE DIDN'T WANT IT. WHEN IT WAS LEFT IN FRONT OF HIM HE STARTED YELLING UNTIL IT WAS REMOVED. HEARD LAUGHTING LOUDLY IN ROOM AND WHEN CHECKED ON HIM HE SAID HE HAD THOUGHT OF SOMETHING REALLY FUNNY. BOTH THERAPIES IN TO SEE PT THIS AFTERNOON AND REPORTS PT APPEARS TO HAVE VISUAL DISTURBANCES AND STRUGGLING WITH HANDLING HIS EXTREMITIES.
--- NOTE | 2020-02-21 04:02 | NUR ---
SHIFT SUMMARY ASSUMED CARE OF PT AT 1900. PT IS A/OX4, BUT IS VERY ANXIOUS. PT DENIES N.T IN EXTREMTIES AND HAS EPISODES OF CONVUSIONS THAT HE DOESNT KNOW WHERE THEY COME FROM. SHE STATES THAT HE DOESNT FEEL ANY PAIN DURING THEM BUT SOMETIMES HE CANT CATCH HIS BREATH. PT REFUSED TO LAY IN HIS BED UNTIL AOUND 0100. AFTER LYING IN BED FOR 5MIN, PATIENT CALLED TO BE PUT BACK INTO HIS CHAIR. EDUCATED PT ABOUT BED SORES AND REASSUED PT THAT WE WERE WATCHING HIM DURING THE NIGHT. PT SLEPT ABOUT TWO HOURSE BEFORE HE CALLED TO BE PUT BACK INTO THE CHAIR AGAIN. PT ADRIÁN IS STILL REDDENED AND SUGGESTED PT STAY IN BED UNTIL BREAKFAST. HEART SOUNDS REGULAR, PT HAS SLIGHT CRACKLES IN THE BASES OF HIS LUNGS, DENIES SOB/CP AT THIS TIME. CATHETER DRAINING CLEAR YELLOW URINE. 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 PT WAS A 2P MINIMAL ASSIST TO BED WITH WALKER AND GAITBELT. PT HAS IS CONVULSIONS WHEN HE BECOMES VERY ANXIOUS AND IS REDIRECTED BY RELAXATION TECHNIQUES. CALL LIGHT IN REACH, BED IN LOWEST POSTION, WILL CONTINUE TO MONITOR UNTIL DAYSHIFT NURSE ARRIVES.
[2020-02-21 04:44] LABS: Hematocrit 35.2 % (37.0-53.0); Hemoglobin 11.3 g/dL (13.5-17.5); Mean Corpuscular HGB 29.2 pg (26.0-34.0); Mean Corpuscular HGB Conc 32.1 g/dL (31.5-36.5); Mean Corpuscular Volume 91 fL (80-100); Mean Platelet Volume 10.1 fL (9.1-12.4); Platelet Count 161 K/mm3 (150-400); RDW Coefficient Variation 13.4 % (11.7-14.2); RDW Standard Deviation 45.1 fL (35.1-46.3); Red Blood Cell Count 3.87 M/mm3 (4.30-5.90); White Blood Cell Count 6.78 K/mm3 (4.00-11.30)
[2020-02-21 05:03] LABS: Bun/Creatinine Ratio 20.6 (12.0-20.0); Calcium, Blood 8.1 mg/dL (8.5-10.1); Creatinine, Blood 1.94 mg/dL (0.60-1.20); Potassium, Blood 4.1 mmol/L (3.5-5.5)
--- NOTE | 2020-02-21 10:00 | NUR ---
DISCUSSED POLICY WITH PT ABOUT CHANGING CATHETERS WHEN PT COMES TO HOSPITAL AND GETS ADMITTED. PT STATED HE DIDN'T WANT IT CHANGE DUE TO IT BEING PLACED ONLY A FEW DAYS AGO. UA HAD BEEN SENT BY ED THAT WAS NEGATIVE FOR UTI DURING 02/19 ED VISIT WITH SUBSEQUENT ADMISSION.
--- NOTE | 2020-02-21 13:18 | NUR ---
Upon receiving a referral for a spiritual care referral, I visit patient. One of patient's 1st statements is, "If I had a gun, I would kill myself." We talk at great length as therapeutic alliance is being formed. Patient tells me about his work and family history, about his spirituality and about his his living arrangements at [facility] in [place]. During our conversation patient would burst into tears over everything from the words to a Antelmo Cartagena song to possible extinction of the Snow Leopard. Patient would spontaniously make the sounds of the Leopard or his dog who . Patient talks about his fear of not knowing what is going on with his health and about his inability to control his body or emotions. I listen empathically, reinforce helpful attitudes and practices, normalize patient's experience and provide companionship and a calming presence. Patient responds well and shows signs of increased peace. I will continue to remain available to patient and family.
--- NOTE | 2020-02-21 18:39 | NUR ---
SHIFT SUMMARY PT HAS BEEN MAKING COMMENTS ABOUT FEELING ISOLATED AND ALONE. HAS HAD UNCONTROLLABLE LAUGHING AND CRYING. HAS HAD TREMORS ON AND OFF TODAY BUT SEEMED TO LESSEN DAY PROGRESSED. STATES HE STILL HAS VISUAL DISTURBANCES. AT ONE POINT THERE WAS A LOUD YELL IN HIS ROOM AND HE REPORTED HE WAS TRYING TO MAKE THE NOISE OF A SNOW LEOPARD. EXPLAINED INAPPROPRIATENESS OF THE NOISE AND PT SAID HE WOULDN'T DO IT AGAIN BUT THEN IN ANOTHER BREATH SAID WHEN THE URGE CAME ON HE COULDN'T HELP IT. HAS WANTED TO BE UP IN HIS CHAIR ALL DAY AND WITHIN VIEW OF HALLWAY OR STAFF. OCC CALLING OUT AND STATES HE JUST NEEDS SOMEONE TO TALK TO. 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 NEEDS CUING FOR BREATHING TECHNIQUE WHEN HE STARTED TO GASP FOR BREATH AND START TREMORING.
[2020-02-22 05:00] LABS: Albumin, Blood 2.8 g/dL (3.4-5.0); Anion Gap 4 mmol/L (6-16); Blood Urea Nitrogen 32 mg/dL (8-24); Bun/Creatinine Ratio 23.7 (12.0-20.0); CHOL/HDL RATIO 4.6; CO2, Blood 25 mmol/L (21-32); Calcium, Blood 7.8 mg/dL (8.5-10.1); Chloride, Blood 108 mmol/L (98-108); Cholesterol 116 mg/dL (50-200); Creatinine, Blood 1.35 mg/dL (0.60-1.20); Glomerular Filtration Rate 54 (60-); Glucose, Blood 103 mg/dL (70-99); HDL Cholesterol 25 mg/dL (>39); Low Density Lipoprotein Chol 76 mg/dL (0-110); Phosphorus, Blood 2.5 mg/dL (2.5-4.9); Potassium, Blood 4.4 mmol/L (3.5-5.5); Sodium, Blood 137 mmol/L (136-145); Triglycerides 74 mg/dL (30-160); Very Low Density Lipoprot Chol 14 mg/dL (6-32)
--- NOTE | 2020-02-22 05:18 | NUR ---
SHIFT SUMMARY ASSUMED CARE OF PT AT 1900. PT IS A/OX4, BUT FORGETFUL AT TIMES. HEART SOUNDS REGULAR, LUNG SOUNDS CLEAR, DENIES CP/SOB AT THIS TIME. PT IS STILL HAVING BODY SPASMS, PT NEEDS TO BE REMINDED TO BREATH AND THAT HE IS NOT ALONE THROUGH THIS. PT STATED THAT HE WAS STILL HAVING VISUAL DISTURBANCES. PT WAS MORE CALM TONIGHT WHEN GETTING INTO BED. BUTTOCK IS STILL SLIGHTLY REDDENED. PT IS A 1P MINIMAL ASSIST TO BED. CATHETER DRANING CLEAR YELLOW URINE. NO ACUTE CHANGES NOTED T/O THE NIGHT. PT SLEPT MOST OF THE NIGHT. CALL LIGHT IN REACH, BED IN LOWEST POSTION, WILL CONTINUE TO MONITOR UNTIL DAYSHIFT NURSE ARRIVES.
--- NOTE | 2020-02-22 11:59 | NUR ---
Spiritual care visit conducted. Patient picks up where he left off form my visit yesterday in telling me stories of his life. Patient had a few crying episodes that where rather loud but made no screams and no animal noises. Patient seems to be a good historian. Patient tells me the pain of his divorce and about his his grown children and how they handled the divorce back it happened to the present. Patient gets emotional about a Flowity song and is able to tell me the words and why it has impacted him so much. I listen empathically and provide companionship, pastoral program counselor and prayer. Patient responds well and voices appreciation for my time and the prayer. I will continue to be available to patient and family.
--- NOTE | 2020-02-22 14:09 | NUR ---
PT TRANSFERRED TO SCU 344 AT THIS TIME. BEDSIDE REPORT GIVEN TO KARY COLBERT RN. PT AXO X3 COOPERATIVE WITH CARE THOUGH PT ANXIOUS THROUGHOUT THE SHIFT. DR WOLF NOTIFIED OF TRANSFER. UPON ASSESSMENT OF PATIENT, PT COMPLAINED THAT HE WAS "HAVING A SEIZURE." DR WOLF NOTIFED RIGHT AWAY. PT CALMED WITH THERAPEUTIC COMMINICATION. PTS SISTER EXPLAINED TO THIS NURSE THAT PATIENT HAS AUTISM AND NEEDS EMOTIONAL SUPPORT/ SITTER. MEDICAL STAFF SPECIALIST IN TO TALK WITH PATIENT. PT UP TO CHAIR, ATTEMPTING TO STAND UP AT TIMES. BED IN LOW POSITION, CALL LIGHT WITHIN REACH.
--- NOTE | 2020-02-22 16:51 | NUR ---
SHIFT SUMMARY PATIENT TRANSFERED FROM FLOOR TO SCU. PATIENT DENIES PAIN, NAUSEA, AND SHORTNESS OF BREATH. PATIENT ANXIOUS UPON ARRIVAL TO NEW ROOM BUT SETTLED IN QUICKLY. PATIENT SITTING QUIETLY WATCHING TV. PATIENT PLEASANT AND COOPERATIVE WITH CARE. PATIENT UP ONE ASSIST W/GAITBELT AND FWW. DIALLO PATENT AND DRAINING. CALL LIGHT IN REACH.
--- NOTE | 2020-02-22 20:29 | NUR ---
ATTEMPTED TO RETURN SISTER, MICH'Jules, PHONE CALL NO ANSWER AT THE NUMBER PROVIDED.
--- NOTE | 2020-02-22 21:16 | NUR ---
PT STATUS PT YELLING OUT ABOUT HIS HEARTBURN. I DID PULL ORAL ANTACIDS BUT HE REFUSED TO TAKE THEM. HE THEN YELLED OUT AGAIN ABOUT PAINFUL HIPS. WE DID REPLACE HIS CHAIR WITH A MORE COMFORTABLE RECLINER. HE DOES HAVE LABILE MOODS.
--- NOTE | 2020-02-23 03:57 | NUR ---
SHIFT SUMMARY ADMITTED FOR ARF. 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 FULL CODE. LIVES AT [facility]. PLAN IS FOR DC TO SNF FOR REHAB. ALSO SEE UROLOGY OUTPATIENT FOR RETENTION/BPH. NICOLE IS PSYCH CONSULT. HE HAS LABILE MOODS, SISTER INFORMS THAT HE HAS AUTISM. HE IS 1 ASSIST W/FWW & GAITBELT TO BS. HE HAD A RECENT UTI, BUT IS NOW CLEAR. HE IS ON RA, DIALLO IN PLACE, CARDIAC DIET. NS INFUSING @ 75 ML/HR. HX: OSEOMYLITIS/GANGREEN - [address] LEFT TOES AMPUTATED, FREQUENT FALLS. CONSULT NICOLE ORDERED SEROQUEL YESTERDAY. I WAS VERBALLY INFORMED THAT THE 50 MG DOSE WAS SUPPOSED TO BE A BEDTIME DOSE, BUT THE EMAR DOES NOT REFLECT THAT. I WILL ASK DAY NURSE TO CLARIFY.
--- NOTE | 2020-02-23 15:48 | NUR ---
SHIFT SUMMARY PT AWAKE DURING SHIFT REPORT THI AM. HAS BEEN PLEASANT AND CO-OP WITH CARE. PT BECAME ANXIOUS THIS AM, WHEN SITTING ON EOB, EATING BREAKFAST; FEARFUL OF FALLING OOB. PT CALMED AND THEN ASSISTED TO CHAIR AT BS TO FINISH EATING. PT REMAINED IN THE CHAIR UNTIL AFTER LUNCH, WHEN HE CALLED TO GO BACK TO BED. PT DOES WELL MOST OF THE TIME, BUT WILL HAVE PERIODS OF ACUTE ONSET ANXIETY EVERY FEW HOURS. SEROQUEL GIVEN PER EMAR, WHICH SEEMS TO HELP. DR WOLF IN TO SEE PT THIS AM. SEROQUEL ORDER ON EMAR CLARIFIED. INFORMED PT OF D/C TO REHAB, TO GET STRONGER, BEFORE RETURNING TO [facility]. PT AGREEABLE. DIALLO CATH TO REMAIN IN PLACE AT D/C PT TO SEE UROLOGY OUTPT. PER PT, DIALLO CATH WAS ALREADY IN PLACE WHEN ADMITTED. PT'S DAUGHTER CALLED TO CK ON PT AND LATER CALLED HIM. PT ENCOURAGED WHEN FAMILY CALLED. RESTING QUIETLY AT THIS TIME. NO C/O. CALL LT IN REACH.
--- NOTE | 2020-02-23 17:09 | NUR ---
PT HAVING ANOTHER EMOTIONAL OUTBURST. SEROQUEL GIVEN PER EMAR. PT AWARE OF EMOTIONS, BUT REPORTS "I CAN'T HELP IT" AND CALMS QUICKLY WHEN COMFORTED. PT ASSISTED TO SHOWER AT THIS TIME, PER PT REQUEST, INSTEAD OF BED BATH. 2P ASSIST INTO SHOWER. PT WEAK AND UNSTEADY, BUT IS COMFORTABLE HOLDING ONTO FWW.
--- NOTE | 2020-02-23 20:52 | NUR ---
PATIENT HAD EMOTIONAL OUTBURST. PATIENT ABLE TO CALM DOWN QUICKLY. SCHEDULE SEROQUEL DUE AND GIVEN ONCE PATIENT BACK TO BASELINE. TOOK MEDICATIONS WHOLE AND BACK TO WATCHING TV AND RESTING IN CHAIR. CHAIR ALARM ACTIVATED.
--- NOTE | 2020-02-24 04:13 | NUR ---
SHIFT SUMMARY PATIENT HAD ONE EMOTIONAL OUTBURST THIS SHIFT. EVENT SUBSIDED QUICKLY. PATIENT AXOX 3 AND ONE ASSIST TO CHAIR. DIALLO PATENT AND DRAINING. PIV REMAINS INTACT. REPORTED NECK/BACK PAIN X ONE AND RECEIVED TYLENOL PER EMAR. VSS/AFEBRILE. DENIES SOB AND N/V. PATIENT SAT IN CHAIR FIRST PART OF SHIFT TO HELP WITH BACK PAIN. COOPERATIVE WITH CARE. CALL LIGHT IN REACH. BED IN LOWEST POSITION AND ALARM ACTIVATED. WILL CONTINUE TO MONITOR UNTIL DAY SHIFT NURSE ASSUMES CARE.
--- NOTE | 2020-02-24 16:26 | NUR ---
SHIFT SUMMARY PT CONTINUES TO IMPROVE. MOBILITY IMPROVED WELL EMOTIONAL OUTBURSTS DECREASED. PT ONLY BECAME UPSET ONE TIME TO PRESENT THIS SHIFT. PT UP TO CHAIR AND ABLE TO AMBULATE AROUND IN TODAY, USING FWW AND 1P ASSIST. PT HAS BEEN PLEASANT AND CO-OP WITH CARE. FAMILY CALLED TO TALK TO PT, WHICH HELPS WELL. NO C/O. NO S/SX OF DISTRESS NOTED OR REPORTED. DIALLO CATH REMAINS PATENT. PT TO D/C WITH DIALLO AGAIN UNTIL ABLE TO SEE UROLOGY OUTPT. RESTING QUIETLY AT THIS TIME. CALL LT IN REACH. BED ALARM ON FOR SAFETY.
--- NOTE | 2020-02-25 01:39 | NUR ---
PATIENT RESTING IN BED. NO EMOTIONAL OUTBURST AT THIS TIME. CALL LIGHT IN REACH.
--- NOTE | 2020-02-25 03:15 | NUR ---
SHIFT SUMMARY PATIENT HAD NO ACUTE CHANGES OBSERVED. NO EMOTIONAL OUTBURST OBSERVED. AXOX 3 WITH HX AUTISM. ONE ASSIST TO BSC. DIALLO PATENT AND DRAINING. TAKES MEDICATION WHOLE WITH WATER. PIV REMAINS INTACT. VSS/AFEBRILE. DENIES PAIN, SOB, AND N/V. COOPERATIVE WITH CARE. BED IN LOWEST POSITION AND BED ALARM ACTIVATED. CALL LIGHT IN REACH. WILL CONTINUE TO MONITOR UNTIL DAY SHIFT NURSE ASSUMES CARE.
[2020-02-25 05:03] LABS: Hematocrit 37.4 % (37.0-53.0); Mean Corpuscular HGB 29.1 pg (26.0-34.0); Mean Corpuscular HGB Conc 32.1 g/dL (31.5-36.5); Mean Corpuscular Volume 91 fL (80-100); Mean Platelet Volume 9.9 fL (9.1-12.4); Platelet Count 168 K/mm3 (150-400); RDW Coefficient Variation 12.8 % (11.7-14.2); RDW Standard Deviation 42.6 fL (35.1-46.3); Red Blood Cell Count 4.13 M/mm3 (4.30-5.90); White Blood Cell Count 7.95 K/mm3 (4.00-11.30)
[2020-02-25 05:34] LABS: Albumin, Blood 2.9 g/dL (3.4-5.0); Anion Gap 4 mmol/L (6-16); Blood Urea Nitrogen 23 mg/dL (8-24); Bun/Creatinine Ratio 22.5 (12.0-20.0); CO2, Blood 26 mmol/L (21-32); Calcium, Blood 8.6 mg/dL (8.5-10.1); Chloride, Blood 110 mmol/L (98-108); Creatinine, Blood 1.02 mg/dL (0.60-1.20); Glomerular Filtration Rate >60 (60-); Glucose, Blood 93 mg/dL (70-99); Phosphorus, Blood 2.9 mg/dL (2.5-4.9); Potassium, Blood 4.1 mmol/L (3.5-5.5); Sodium, Blood 140 mmol/L (136-145)
--- NOTE | 2020-02-25 10:47 | NUR ---
UPDATED [facility] ON PLAN TO DC TO SNF ONCE BED S AVAILABLE.
--- NOTE | 2020-02-25 12:26 | NUR ---
SARAH BRANTLEY, PT SISTERS NUMBER GIVEN TO DR. GEIGER. DR. GEIGER STATES HE WILL GIVE HER A CALL WITH AN UPDATE.
--- NOTE | 2020-02-25 17:56 | NUR ---
SHIFT SUMMARY PT SEEN BY DR. GEIGER THIS SHIFT. INCREASE IN SEROQUEL AT BEDTIME RESULTED. PT BP ELEVATED THIS AFTERNOON. SCHEDULED HYDRALAZINE GIVEN. BP IMPROVED TO 170S SYSTOLIC. PRN HYDRALAZINE THEN GIVEN. PT HAS EPISODES OF ANXIETY, TALKED DOWN EASILY. PRN SEROQUEL GIVEN ONCE. NO OTHER ACUTE CHANGES IN ASSESSMENT AT THIS TIME. VITAL SIGNS REVIEWED. WILL CONTINUE TO MONITOR UNTIL TURNOVER IS COMPLETE.
--- NOTE | 2020-02-25 19:54 | NUR ---
PT CO heartburn 1000 mg tums given PRN dose. PT has lip smacking. Likes room darkened. Up at bedside with FWW to stand. Griffin patent draining adeq amt of clear light yellow urine. SBP 161 recieved PRN apresoline at 1714, due for routine scheduled dose at 2100. Up in bedside chair with alarm activated.
--- NOTE | 2020-02-26 03:07 | NUR ---
80 year old MAle with acute on chronic renal failure continues with ross cath. Drains adequate amts of clear yellow urine. Sister in [place] calls says Sylvester has autism, she asks if we can walk PT? PT has been recieving PT OT & has had psych eval with rx prescribed by DR Juarez. Cooperative with meds. Up in chair for extended period then back to chair then back to bed again. Sleeping soundly now. PT prefers the dark but when I shut the light off at HS he said "hey who turned out the lights?". Fall precautions, PT sets off alarm frequently. Without major complaints. Sister updated on plan of care. Day Rn says PT will go to SNF prior to return to [place].
[2020-02-26] MEDS ORDERED: AMLO5 PO (10:19)
[2020-02-26] MEDS ORDERED: ASPI325 PO (10:20)
[2020-02-26] MEDS ORDERED: GABA100 PO (10:21)
[2020-02-26] MEDS ORDERED: ATOR20 PO (10:21)
[2020-02-26] MEDS ORDERED: QUET25 PO (10:22)
[2020-02-26] MEDS ORDERED: QUET100 PO (10:23)
--- NOTE | 2020-02-26 10:46 | NUR ---
PT DCD HOME TO [facility]. INSTRUCTIONS WERE REVIEWED WITH THE PT BUT HE IS FORGETFUL. REPORT WAS ATTMPTED TO BE CALLED TWICE THIS MORNING BUT THE NURSE AT THE FACILITY STATES THAT SHE CONNOT TAKE REPORT UNTIL THEY REVIEW THE MEDS/DC PACKET ALL OF WHIC WAS FAXED TO THEM FOR REVIEW. DC [employer] SUPERVISOR IS SCHEDULING A RIDE FOR 12:00. IV WAS REMOVED WITH NO ISSUE. OT ASSISTED THE PT TO GET DRESSED. ALL PERSONAL BELONGINGS WILL BE SENT WITH THE PT.
--- NOTE | 2020-02-26 11:46 | NUR ---
[facility] care visit conducted. Patient is sitting on a chair and alert. Patient tells me he will DC today to [facility]. Patient says he is excited to go back there but is concerned that he might not get better. Patient says that there has been some improvement in his vision and he states that his thoughts are more clear and he is less fearful. I listen empathically, celebrate patient's improvement and pray a blessing over him as he transitions out of the hospital and pray for peace and clarity for his mind.
== END 2020-02-26 14:26 | disposition home health service (06) | DRG 65 ==
LOC: ER 10:04 → MEDS 10:05
PROVIDERS: Emergency Medicine; Internal Medicine; ADMIT Internal Medicine
DX: I63.531 Cerebral infarction due to unspecified occlusion or stenosis of right posterior cerebral artery (principal); F84.0 Autistic disorder; H53.459 Other localized visual field defect, unspecified eye; R33.8 Other retention of urine; N40.1 Benign prostatic hyperplasia with lower urinary tract symptoms; N18.3 Chronic kidney disease, stage 3 (moderate); F29 Unspecified psychosis not due to a substance or known physiological condition; I12.9 Hypertensive chronic kidney disease with stage 1 through stage 4 chronic kidney disease, or unspecified chronic kidney disease; I65.23 Occlusion and stenosis of bilateral carotid arteries; D64.9 Anemia, unspecified
CPT/HCPCS: 36415; 70551; 80048; 80053; 80061; 80069; 80185; 81003; 82570; 83036; 84300; 85025; 85027; 93306; 93880; 96360; 96361; 96372; 97110; 97112; 97116; 97162; 97166; 97530; 97535; 99285-25; A9270; G0378; J1650; J7030

== ENCOUNTER 2020-09-26 16:38 | Inpatient (IN) | payer OTHER ==
[~2020-09-26] VITALS: Ht 175.3 cm; Wt 85.3 kg
[~2020-09-26 16:38] MED LIST changes: +FLEET ENEMA133 ML PR; +FURO40 PO; +LOPERAMIDE2 MG PO; +MINERAL OIL HEAV1 ML BOTHEARS; +POTA10T PO; -TUMS500 MG PO; +ZESTORETIC 20-1 EAC3 PO
[2020-09-26 17:47] LABS: BASOPHILS ABSOLUTE AUTO 0.06 K/mm3 (0.00-0.23); BASOPHILS PERCENT AUTO 0 % (0-2); EOSINOPHILS ABSOLUTE AUTO 0.08 K/mm3 (0.00-0.68); EOSINOPHILS PERCENT AUTO 1 % (0-6); Hematocrit 42.5 % (37.0-53.0); Hemoglobin 13.6 g/dL (13.5-17.5); IMMATURE GRAN ABSOLUTE AUTO 0.09 K/mm3 (0.00-0.10); IMMATURE GRAN PERCENT AUTO 1 % (0-1); LYMPHOCYTES ABSOLUTE AUTO 1.02 K/mm3 (0.84-5.20); LYMPHOCYTES PERCENT AUTO 6 % (21-46); MONOCYTES ABSOLUTE AUTO 1.16 K/mm3 (0.16-1.47); MONOCYTES PERCENT AUTO 7 % (4-13); Mean Corpuscular HGB 29.6 pg (26.0-34.0); Mean Corpuscular Volume 92 fL (80-100); Mean Platelet Volume 9.9 fL (9.1-12.4); NEUTROPHILS ABSOLUTE AUTO 15.35 K/mm3 (1.96-9.15); NEUTROPHILS PERCENT AUTO 87 % (41-73); Platelet Count 193 K/mm3 (150-400); RDW Standard Deviation 44.4 fL (35.1-46.3); White Blood Cell Count 17.76 K/mm3 (4.00-11.30)
[2020-09-26 18:04] LABS: Alanine Aminotransfer (ALT/SGP 20 U/L (12-78); Albumin, Blood 3.3 g/dL (3.4-5.0); Albumin/Globulin Ratio 0.9 (0.8-1.8); Alk Phos 120 U/L (50-136); Anion Gap 6 mmol/L (6-16); Aspartate Aminotrans (AST/SGOT 12 U/L (12-37); Bilirubin, Total 0.2 mg/dL (0.1-1.0); Blood Urea Nitrogen 25 mg/dL (8-24); Bun/Creatinine Ratio 26.8 (12.0-20.0); CO2, Blood 28 mmol/L (21-32); Calcium, Blood 8.9 mg/dL (8.5-10.1); Chloride, Blood 107 mmol/L (98-108); Creatinine, Blood 0.93 mg/dL (0.60-1.20); Globulin, Blood 3.7 g/dL (2.2-4.0); Glomerular Filtration Rate >60 (60-); Glucose, Blood 152 mg/dL (70-99); Potassium, Blood 4.7 mmol/L (3.5-5.5); Sodium, Blood 141 mmol/L (136-145)
[2020-09-26 19:09] LABS: Source, Urine Clean Catch
[2020-09-26 19:12] LABS: Appearance, Urine Clear (Clear); Bilirubin, Urine Neg (Neg); Blood, Urine 3+ (Neg); Color, Urine Yellow (P-Yellow); Glucose Qualitative, Urine Neg (Neg); Ketones, Urine Neg (Neg); Leukocyte Esterase, Urine Neg (Neg); Nitrite, Urine Neg (Neg); Protein, Urine 1+ (Neg); Urobilinogen, Urine NORM (Normal)
[2020-09-26 19:19] LABS: Bacteria Rare /hpf; Squamous Epithelial Cells Not Seen /hpf (Few); White Blood Cells, Urine Rare /hpf (0-5)
[2020-09-26] MEDS ORDERED: AMLO5 PO (22:05)
[2020-09-26] MEDS ORDERED: FERROUS SULFAT325 M3 PO (22:05)
[2020-09-26] MEDS ORDERED: GABA100 PO (22:06)
[2020-09-26] MEDS ORDERED: ATOR10 PO (22:06)
[2020-09-26] MEDS ORDERED: ASPI325 PO (22:06)
[2020-09-26] MEDS ORDERED: TAMS.4ER PO (22:08)
[2020-09-26] MEDS ORDERED: QUET100 PO (22:09)
[2020-09-26] MEDS ORDERED: MUPIROCIN1 G1 TOP (22:19)
--- NOTE | 2020-09-26 23:31 | NUR ---
ADMITTED 80 YR OLD MALE FROM THE ED WITH DX OF SEPSIS AND POSSIBLE COVID 19. COVID 19 CULTURE OBTAINED IN ED, WAITING FOR THE RESULTS. ORIENTED X 3. HX POSSIBLE SEIZURES. RAILS PADDED, AND DROPLET ISOLATION INITIATED UNTIL COVID RULES OUT. CALL LIGHT IN REACH
[2020-09-26 23:42] LABS: Influenza A, PCR Negative (NEGATIVE); Influenza B, PCR Negative (NEGATIVE); Resp Syncytial Virus, PCR Negative (NEGATIVE); SARS-Cov-2 (COVID-19) PCR, MMC Negative (NEGATIVE)
--- NOTE | 2020-09-26 23:57 | NUR ---
COVID TEST RESULTS NEGATIVE. ISOLATION DISCONTINUED
--- NOTE | 2020-09-27 04:02 | NUR ---
SHIFT SUMMARY HAS BEEN RESTING QUIETLY WITH FEW INTERRUPTIONS SINCE ADMISSION EARLIER. CALL LIGHT IN REACH. NO NOTED DISTRESS AT THIS TIME.
[2020-09-27 08:17] LABS: BASOPHILS ABSOLUTE AUTO 0.03 K/mm3 (0.00-0.23); BASOPHILS PERCENT AUTO 0 % (0-2); EOSINOPHILS PERCENT AUTO 1 % (0-6); Hematocrit 36.4 % (37.0-53.0); IMMATURE GRAN ABSOLUTE AUTO 0.05 K/mm3 (0.00-0.10); IMMATURE GRAN PERCENT AUTO 0 % (0-1); LYMPHOCYTES ABSOLUTE AUTO 1.87 K/mm3 (0.84-5.20); LYMPHOCYTES PERCENT AUTO 15 % (21-46); MONOCYTES ABSOLUTE AUTO 0.87 K/mm3 (0.16-1.47); MONOCYTES PERCENT AUTO 7 % (4-13); Mean Corpuscular HGB 30.2 pg (26.0-34.0); Mean Corpuscular Volume 92 fL (80-100); Mean Platelet Volume 9.8 fL (9.1-12.4); NEUTROPHILS ABSOLUTE AUTO 9.95 K/mm3 (1.96-9.15); NEUTROPHILS PERCENT AUTO 77 % (41-73); Platelet Count 179 K/mm3 (150-400); RDW Coefficient Variation 13.1 % (11.7-14.2); RDW Standard Deviation 43.6 fL (35.1-46.3); Red Blood Cell Count 3.97 M/mm3 (4.30-5.90); White Blood Cell Count 12.87 K/mm3 (4.00-11.30)
[2020-09-27 08:36] LABS: Albumin, Blood 2.9 g/dL (3.4-5.0); Anion Gap 7 mmol/L (6-16); Blood Urea Nitrogen 20 mg/dL (8-24); Bun/Creatinine Ratio 23.9 (12.0-20.0); CO2, Blood 25 mmol/L (21-32); CPK Creatine Kinase 154 U/L (39-308); Calcium, Blood 8.4 mg/dL (8.5-10.1); Chloride, Blood 109 mmol/L (98-108); Creatinine, Blood 0.84 mg/dL (0.60-1.20); Glomerular Filtration Rate >60 (60-); Glucose, Blood 103 mg/dL (70-99); Phosphorus, Blood 2.7 mg/dL (2.5-4.9); Sodium, Blood 141 mmol/L (136-145)
--- NOTE | 2020-09-27 17:44 | NUR ---
SHIFT SUMMARY PATIENT ALERT AND ORIENTED THROUGHOUT THIS SHIFT. PATIENT SLOW TO RESPOND. PATIENT SITTING UP IN BED THROUGHOUT THIS SHIFT WATCHING TELEVISION AND CONVERSING WITH STAFF. PATIENT WITH HARSH COUGH THIS AM LESSENING THIS AFTERNOON. PATIENT DENIES PAIN THROUGHOUT THIS SHIFT. PATIENT CURRENTLY SITTING UP IN BED EATING DINNER.
--- NOTE | 2020-09-28 04:46 | NUR ---
SHIFT SUMMARY: AAOX3. ABLE TO COMMUNICATE NEEDS. AFEB. 02 93-95% ON RA. NO COUGHING TONIGHT. LSCTA W/ DIM BASES. NO SOB. AMB TO BATHROOM W/ 1 ASSIST USING WALKER AND GAIT BELT. NO SEIZURE ACTIVITY OBSERVED. APPEARS TO HAVE SLEPT THROUGH MUCH OF THE NIGHT. NO ACUTE CONCERNS AT THIS TIME. WILL CONT TO MONITOR.
[2020-09-28 05:00] LABS: Hematocrit 34.5 % (37.0-53.0); Hemoglobin 11.1 g/dL (13.5-17.5); Mean Corpuscular HGB 29.5 pg (26.0-34.0); Mean Corpuscular HGB Conc 32.2 g/dL (31.5-36.5); Mean Corpuscular Volume 92 fL (80-100); Platelet Count 171 K/mm3 (150-400); RDW Coefficient Variation 13.2 % (11.7-14.2); RDW Standard Deviation 44.3 fL (35.1-46.3); Red Blood Cell Count 3.76 M/mm3 (4.30-5.90); White Blood Cell Count 9.33 K/mm3 (4.00-11.30)
[2020-09-28] MEDS ORDERED: LEVO750 PO (11:10)
[2020-09-28] MEDS ORDERED: PROBIOTIC1 EA13 PO (11:10)
[2020-09-28] MEDS ORDERED: GUAI600T33 PO (11:10)
[2020-09-28] MEDS ORDERED: MIRALAX17 G3 PO (11:11)
--- NOTE | 2020-09-28 17:28 | NUR ---
SHIFT SUMMARY PATIENT ALERT AND ORIENTED THIS SHIFT. PATIENT AMULATORY WITH FWW AND GAITBELT. PATIENT UP MULTIPLE TIMES THIS SHIFT TO THE BATHROOM. PATIENT DENIES PAIN THROUGHOUT THIS SHIFT. PATIENT COOPERATIVE WITH CARE. PATIENT SITTING UP IN BED THROUGHOUT THIS SHIFT WATCHING TELEVISION. PATIENT CURRENTLY SITTING UP AWAITING DINNER.
--- NOTE | 2020-09-29 06:13 | NUR ---
SHIFT SUMMARY HAS BEEN RESTING QUIETLY WITH FEW INTERUPTIONS. CALL LIGHT IN REACH
--- NOTE | 2020-09-29 09:34 | NUR ---
CALLED [facility] REGARDING PATIENT D/C TODAY. LEFT VM WITH INSTRUCTIONS TO CALL BACK REGARDING TRANSPORTATION AND MEDICATIONS.
[2020-09-29] MEDS ORDERED: CEFU500T30 PO (10:46)
[2020-09-29 11:15] LABS: Influenza A, PCR Negative (NEGATIVE); Influenza B, PCR Negative (NEGATIVE); Resp Syncytial Virus, PCR Negative (NEGATIVE); SARS-Cov-2 (COVID-19) PCR, MMC Negative (NEGATIVE)
--- NOTE | 2020-09-29 11:58 | NUR ---
DISCHARGE PT A&O AND ABLE TO MAKE NEEDS KNOWN. PT WAS A 1 PERSON ASSIST TO THE BATHROOM. ALAN NOTIFIED OF PT'S DISCHARGE AND SHILOH GAVE REPORT TO THEM. PT PICKED UP BY [facility] AND TAKEN OFF THE FLOOR VIA WHEELCHAIR. PT TOOK BELONINGS WITH HIM. TELE AND IV DC BEFORE PT LEFT. ALAN NOTIFIED OF ANTIBIOTIC, FAXED RX TO REQUESTED PHARMACY.
== END 2020-09-29 11:56 | disposition home or self-care (01) | DRG 871 ==
LOC: ER 16:38 → MEDS 23:18 → ENPENDDIS 09-28 16:37 → MEDS 09-29 11:56
PROVIDERS: Internal Medicine; Student in an Organized Health Care Education/Training Program; ADMIT Internal Medicine
DX: A41.9 Sepsis, unspecified organism (principal); J18.9 Pneumonia, unspecified organism; F84.0 Autistic disorder; N40.0 Benign prostatic hyperplasia without lower urinary tract symptoms; D50.9 Iron deficiency anemia, unspecified; D53.1 Other megaloblastic anemias, not elsewhere classified; N18.30 Chronic kidney disease, stage 3 unspecified; I12.9 Hypertensive chronic kidney disease with stage 1 through stage 4 chronic kidney disease, or unspecified chronic kidney disease; Z20.822 Contact with and (suspected) exposure to COVID-19; Z86.73 Personal history of transient ischemic attack (TIA), and cerebral infarction without residual deficits; Z89.422 Acquired absence of other left toe(s); Z79.82 Long term (current) use of aspirin
CPT/HCPCS: 0241U; 36415; 71045; 80053; 80069; 81001; 82550; 82947; 83605; 85025; 85027; 87040; 87070; 87205; 93005; 93010; 96361; 96365; 97162; 99285-25; A9270; J0696; J1650; J7120

== ENCOUNTER 2020-10-11 18:33 | Inpatient (IN) | payer OTHER ==
[~2020-10-11] VITALS: Ht 175.3 cm; Wt 80.7 kg
[~2020-10-11 18:33] MED LIST changes: +AMLO5 PO; +ASPI325 PO; +ATOR10 PO; +CEFU500T30 PO; +FERROUS SULFAT325 M3 PO; +GABA100 PO; +GUAI600T33 PO; +LEVO750 PO; +MIRALAX17 G3 PO; +MUPIROCIN1 G1 TOP; +PROBIOTIC1 EA13 PO; +QUET100 PO
[2020-10-11] MEDS ORDERED: AMLO5 PO (19:03)
[2020-10-11] MEDS ORDERED: ASPI325EC PO (19:03)
[2020-10-11] MEDS ORDERED: ATOR10 PO (19:03)
[2020-10-11] MEDS ORDERED: GABA100 PO (19:04)
[2020-10-11] MEDS ORDERED: PHENYTOIN SODI300 MG PO (19:04)
[2020-10-11] MEDS ORDERED: FERSU300 PO (19:04)
[2020-10-11] MEDS ORDERED: TAMS.4ER PO (19:05)
[2020-10-11] MEDS ORDERED: QUETIAPINE FUM100 M1 PO (19:05)
[2020-10-11 19:23] LABS: BASOPHILS ABSOLUTE AUTO 0.04 K/mm3 (0.00-0.23); BASOPHILS PERCENT AUTO 0 % (0-2); EOSINOPHILS ABSOLUTE AUTO 0.01 K/mm3 (0.00-0.68); EOSINOPHILS PERCENT AUTO 0 % (0-6); Hematocrit 38.2 % (37.0-53.0); Hemoglobin 12.1 g/dL (13.5-17.5); IMMATURE GRAN ABSOLUTE AUTO 0.14 K/mm3 (0.00-0.10); IMMATURE GRAN PERCENT AUTO 1 % (0-1); LYMPHOCYTES ABSOLUTE AUTO 0.72 K/mm3 (0.84-5.20); LYMPHOCYTES PERCENT AUTO 4 % (21-46); MONOCYTES PERCENT AUTO 8 % (4-13); Mean Corpuscular HGB 30.4 pg (26.0-34.0); Mean Corpuscular HGB Conc 31.7 g/dL (31.5-36.5); Mean Corpuscular Volume 96 fL (80-100); Mean Platelet Volume 9.5 fL (9.1-12.4); NEUTROPHILS ABSOLUTE AUTO 16.35 K/mm3 (1.96-9.15); NEUTROPHILS PERCENT AUTO 87 % (41-73); Platelet Count 180 K/mm3 (150-400); RDW Coefficient Variation 12.7 % (11.7-14.2); RDW Standard Deviation 44.9 fL (35.1-46.3); Red Blood Cell Count 3.98 M/mm3 (4.30-5.90); White Blood Cell Count 18.76 K/mm3 (4.00-11.30)
[2020-10-11 19:47] LABS: Alanine Aminotransfer (ALT/SGP 33 U/L (12-78); Albumin, Blood 2.8 g/dL (3.4-5.0); Albumin/Globulin Ratio 0.9 (0.8-1.8); Alk Phos 116 U/L (50-136); Anion Gap 8 mmol/L (6-16); Aspartate Aminotrans (AST/SGOT 25 U/L (12-37); Bilirubin, Total 0.4 mg/dL (0.1-1.0); Blood Urea Nitrogen 17 mg/dL (8-24); Bun/Creatinine Ratio 25.7 (12.0-20.0); CO2, Blood 19 mmol/L (21-32); Calcium, Blood 7.5 mg/dL (8.5-10.1); Chloride, Blood 112 mmol/L (98-108); Creatinine, Blood 0.66 mg/dL (0.60-1.20); Globulin, Blood 3.2 g/dL (2.2-4.0); Glomerular Filtration Rate >60 (60-); Glucose, Blood 154 mg/dL (70-99); Potassium, Blood 3.5 mmol/L (3.5-5.5); Sodium, Blood 139 mmol/L (136-145); Troponin I <0.015 ng/mL (0.000-0.040)
[2020-10-11 20:09] LABS: Dilantin (Phenytoin), Total 3.3 ug/mL (10.0-20.0)
[2020-10-11 22:58] LABS: Influenza A, PCR Negative (NEGATIVE); Influenza B, PCR Negative (NEGATIVE); Resp Syncytial Virus, PCR Negative (NEGATIVE); SARS-Cov-2 (COVID-19) PCR, MMC Negative (NEGATIVE)
[2020-10-11 23:56] LABS: CPK Creatine Kinase 71 U/L (39-308)
[2020-10-12 05:55] LABS: BASOPHILS ABSOLUTE AUTO 0.03 K/mm3 (0.00-0.23); BASOPHILS PERCENT AUTO 0 % (0-2); EOSINOPHILS PERCENT AUTO 0 % (0-6); Hematocrit 38.7 % (37.0-53.0); Hemoglobin 12.6 g/dL (13.5-17.5); IMMATURE GRAN ABSOLUTE AUTO 0.14 K/mm3 (0.00-0.10); IMMATURE GRAN PERCENT AUTO 1 % (0-1); LYMPHOCYTES ABSOLUTE AUTO 1.38 K/mm3 (0.84-5.20); LYMPHOCYTES PERCENT AUTO 6 % (21-46); MONOCYTES ABSOLUTE AUTO 1.62 K/mm3 (0.16-1.47); MONOCYTES PERCENT AUTO 7 % (4-13); Mean Corpuscular HGB 30.1 pg (26.0-34.0); Mean Corpuscular HGB Conc 32.6 g/dL (31.5-36.5); Mean Corpuscular Volume 92 fL (80-100); Mean Platelet Volume 9.7 fL (9.1-12.4); NEUTROPHILS ABSOLUTE AUTO 19.85 K/mm3 (1.96-9.15); NEUTROPHILS PERCENT AUTO 86 % (41-73); Platelet Count 226 K/mm3 (150-400); RDW Coefficient Variation 13.1 % (11.7-14.2); RDW Standard Deviation 43.7 fL (35.1-46.3); Red Blood Cell Count 4.19 M/mm3 (4.30-5.90); White Blood Cell Count 23.02 K/mm3 (4.00-11.30)
[2020-10-12 06:14] LABS: Alanine Aminotransfer (ALT/SGP 35 U/L (12-78); Albumin/Globulin Ratio 0.8 (0.8-1.8); Alk Phos 121 U/L (50-136); Anion Gap 8 mmol/L (6-16); Aspartate Aminotrans (AST/SGOT 71 U/L (12-37); Bilirubin, Total 0.3 mg/dL (0.1-1.0); Blood Urea Nitrogen 17 mg/dL (8-24); Bun/Creatinine Ratio 19.7 (12.0-20.0); CO2, Blood 23 mmol/L (21-32); Calcium, Blood 8.4 mg/dL (8.5-10.1); Chloride, Blood 109 mmol/L (98-108); Creatinine, Blood 0.86 mg/dL (0.60-1.20); Globulin, Blood 3.7 g/dL (2.2-4.0); Glomerular Filtration Rate >60 (60-); Glucose, Blood 149 mg/dL (70-99); Potassium, Blood 4.1 mmol/L (3.5-5.5); Sodium, Blood 140 mmol/L (136-145); Total Protein, Blood 6.7 g/dL (6.4-8.2)
[2020-10-12 06:23] LABS: Source, Urine Clean Catch
[2020-10-12 06:26] LABS: Appearance, Urine Clear (Clear); Bilirubin, Urine Neg (Neg); Blood, Urine 3+ (Neg); Color, Urine Yellow (P-Yellow); Glucose Qualitative, Urine 3+ (Neg); Ketones, Urine 3+ (Neg); Leukocyte Esterase, Urine Neg (Neg); Nitrite, Urine Neg (Neg); Protein, Urine 2+ (Neg); Urobilinogen, Urine NORM (Normal)
[2020-10-12 06:35] LABS: Bacteria Rare /hpf; Squamous Epithelial Cells Not Seen /hpf (Few); White Blood Cells, Urine 0-2 /hpf (0-5)
[2020-10-12 06:36] LABS: Mucus Light (0-Heavy); Uric Acid Crystals Mod /hpf
[2020-10-12 11:08] LABS: Source, Urine Catheter
[2020-10-12 11:11] LABS: Bilirubin, Urine Neg (Neg); Blood, Urine 3+ (Neg); Glucose Qualitative, Urine Neg (Neg); Ketones, Urine 1+ (Neg); Leukocyte Esterase, Urine 2+ (Neg); Nitrite, Urine Neg (Neg); Protein, Urine 2+ (Neg); Specific Gravity, Urine 1.025 (1.003-1.022); Urobilinogen, Urine NORM (Normal)
[2020-10-12 11:23] LABS: Appearance, Urine Hazy (Clear); Color, Urine Yellow (P-Yellow)
[2020-10-12 11:25] LABS: Squamous Epithelial Cells Not Seen /hpf (Few)
[2020-10-12 11:26] LABS: Bacteria Mod /hpf; Uric Acid Crystals Many /hpf
[2020-10-12] MEDS ORDERED: ACET500 PO (12:58)
[2020-10-12] MEDS ORDERED: HYDRA25 PO (12:58)
[2020-10-12] MEDS ORDERED: TUMS500 MG PO (13:00)
[2020-10-12] MEDS ORDERED: BISA10S PR (13:00)
[2020-10-12] MEDS ORDERED: DULCOLAX400 MG/5 M PO (13:00)
[2020-10-12] MEDS ORDERED: ONDA4ODT SL (13:00)
[2020-10-12] MEDS ORDERED: LOPE2C PO (13:01)
[2020-10-12] MEDS ORDERED: BISMATROL262 MG/15 PO (13:01)
[2020-10-12] MEDS ORDERED: [UNRECOGNIZED DRUG - OTHER] TOP (13:02)
[2020-10-12] MEDS ORDERED: QUET25 PO (13:02)
[2020-10-12] MEDS ORDERED: Hydrocortiso453.6 GM TOP (13:03)
[2020-10-12] MEDS ORDERED: MUPIROCIN1 G1 TOP (13:04)
--- NOTE | 2020-10-12 13:28 | NUR ---
PATIENT ARRIVED FROM ED VIA GURNEY, TRANSFERED TO BED VIA SLIDER SHEET. NO SIGNS OF ACUTE DISTRESS, PATIENT ALERT AND ORIENTED, DENIES CHEST PAIN/PRESSURE. CALL LIGHT WITHIN REACH, BED IN LOW POSITION, WCTM.
[2020-10-12 13:44] LABS: U Amphetamine Screen Not Detected; U Barbituate Screen DETECTED; U Benzodiazapine Screen Not Detected; U Buprenorphine Screen Not Detected; U Cannabinoids Screen Not Detected; U Cocaine Screen Not Detected; U Methadone Screen Not Detected; U Methamphetamine Screen Not Detected; U Opiates Screen DETECTED; U Oxycodone Screen Not Detected; U Phencyclidine Screen Not Detected; U Propoxyphene Screen Not Detected
[2020-10-12] MEDS ORDERED: GUAI600T33 PO (15:27)
--- NOTE | 2020-10-12 16:47 | NUR ---
SHIFT SUMMARY PATIENT ARRIVED TO UNIT TODAY FROM ED, PATIENT IS ALERT AND ORIENTED TO SELF AND PRESENT SITUATION, LIVES AT [facility]. THIS RN SPOKE WITH RN AT [facility] TODAY, PATIENT IS ABLE TO AMBULATE WITH WALKER/ABLE TO USE WHEELCHAIR AT BASELINE. PER [facility] STAFF, PATIENT BECAME INCREASINGLY WEAK OVER THE PAST FEW DAYS, STAFF CALLED EMS AND WAS FOUND TO BY HYPERTENSIVE WITH SBP >200. PER [facility] STAFF, PATIENT HAS BEEN OFF HIS SEROQUEL AND HYDRALAZINE SINCE DISCHARGE FROM HOSPITAL ON 09/29/20. PATIENT IS LABILE, ABLE TO HOLD APPROPRIATE CONVERSATION WITH STAFF AT TIMES, CALLING OUT, YELLING, AND REPEATING HIMSELF AT OTHER TIMES. DR. LEE NOTIFIED, ORDERS FOR PO ATIVAN GIVEN, ADMIN PER EMAR. PATIENT HAD EPISODE OF EMESIS, ZOFRAN GIVEN PER EMAR. PATIENT HYPERTENSIVE, HYDRALAZINE GIVEN PER EMAR. PLAN IS FOR RESTART OF BEDTIME SEROQUEL DOSE TONIGHT.
--- NOTE | 2020-10-13 05:53 | NUR ---
SHIFT SUMMARY PT FREQUENTLY YELLED OUT CALLING FOR "THE NURSE" AND "HELP ME" WHEN IN TO ASK THE PATIENT HOW WE COUND HELP HE WOULD STATE HE WAS JUST ANXIOUS AND DID NOT NEED ANYTHING. OTHER TIMES HE WOULD CALL OUT AND STATE HE WAS IN PAIN. PAIN AND ANXIETY MEDICATION WAS GIVEN. WHEN ASK ABOUT HIS PAIN HE WOULD STATE DIFFERENT RATINGS OF SEVERITY (PAIN SEVERITY WOULD DIFFER WITHIN MINUTES OF EACH OTHER AND BEFORE ANY INTERVENTION) AND WOULD STATE DIFFERENT LOCATIONS. PT WAS DIFFICULT TO UNDERSTAND AND CONFUSED AT TIMES, UNKNOWN WHAT BASELINE IS. VITALS STABLE. BP 114-158 SYSTOLIC, NO PRN ANTIHYPERTENSIVE NEEDED. HR 100'S. O2 SATS >95% ON ROOM AIR. PT CURRENTLY AWAKE IN BED YELLING OUT AND STATING HE DOES NOT NEED HELP.
--- NOTE | 2020-10-13 07:21 | NUR ---
ASSUMED CARE FROM NOC RN PT WAS SLEEPING DURING SHIFT REPORT AND IS CURRENTLY ON RA IT WAS REPORTED BY NOC RN THAT THE PT WOULD NOT KEEP THE O2 NC ON HOWEVER HE HAS BEEN MAINTAINING SATS ABOVE 90%/. PT MAY BE ABLE TO STATUS CHANGE TODAY.
[2020-10-13 08:27] LABS: Hematocrit 36.2 % (37.0-53.0); Hemoglobin 11.6 g/dL (13.5-17.5); Mean Corpuscular HGB 29.5 pg (26.0-34.0); Mean Corpuscular Volume 92 fL (80-100); Mean Platelet Volume 10.1 fL (9.1-12.4); Platelet Count 171 K/mm3 (150-400); RDW Standard Deviation 44.6 fL (35.1-46.3); Red Blood Cell Count 3.93 M/mm3 (4.30-5.90); White Blood Cell Count 15.68 K/mm3 (4.00-11.30)
--- NOTE | 2020-10-13 23:50 | NUR ---
TRANSFER NOTE PATIENT PLEASENT AND COOPERATIVE THROUGHOUT THE NIGHT. PATIENT APPEARED TO SLEEP WELL FOR SEVERAL HOURS. ROOM ASSIGNMENT OBTAINED FOR MEDICAL FLOOR. REPORT GIVEN TO RECIEVING ESTUARDO DARDEN. RN AND SENIOR GOVERNMENT PROGRAM ANALYST TRANSFERED PATIENT UPSTAIRS VIA BED AT APPROX 2332. ALL BELONGINGS SENT WITH PATIENT.
--- NOTE | 2020-10-14 00:02 | NUR ---
PT ARRIVED FROM [facility]. PT AAOX3, PLEASANT AND RESPONDS APPROPRIATELY TO QUESTIONS. DIALLO CATH IN PLACE, DRAINING ESTRADA URINE. PT DENIES NEEDS, GIVEN CALL LIGHT. WILL CONTINUE TO MONITOR.
--- NOTE | 2020-10-14 05:41 | NUR ---
PROPOSITION PLAYER SUMMARY PT TRANSFERED FROM PCU THIS SHIFT. AAOX3 AND PLEASANT. DIALLO CATHETER PATENT AND DRAINING ESTRADA URINE. CATHETER IS CHRONIC. NO HYPERTENTION NOTED THIS SHIFT WITH AM SBP 118. OTHER VSS, WILL CONTINUE TO MONITOR.
[2020-10-14 08:15] LABS: Hematocrit 34.8 % (37.0-53.0); Hemoglobin 11.5 g/dL (13.5-17.5); Mean Corpuscular HGB 30.3 pg (26.0-34.0); Mean Corpuscular Volume 92 fL (80-100); Mean Platelet Volume 10.1 fL (9.1-12.4); Platelet Count 159 K/mm3 (150-400); RDW Coefficient Variation 12.9 % (11.7-14.2); RDW Standard Deviation 42.6 fL (35.1-46.3); Red Blood Cell Count 3.79 M/mm3 (4.30-5.90); White Blood Cell Count 12.57 K/mm3 (4.00-11.30)
[2020-10-14 08:32] LABS: Anion Gap 4 mmol/L (6-16); Blood Urea Nitrogen 19 mg/dL (8-24); Bun/Creatinine Ratio 21.6 (12.0-20.0); CO2, Blood 28 mmol/L (21-32); Calcium, Blood 8.4 mg/dL (8.5-10.1); Chloride, Blood 108 mmol/L (98-108); Creatinine, Blood 0.88 mg/dL (0.60-1.20); Glomerular Filtration Rate >60 (60-); Glucose, Blood 112 mg/dL (70-99); Potassium, Blood 3.6 mmol/L (3.5-5.5); Sodium, Blood 140 mmol/L (136-145)
[2020-10-14] MEDS ORDERED: PROBIOTIC1 EA13 PO (13:51)
[2020-10-14] MEDS ORDERED: LEVO750 PO (13:51)
--- NOTE | 2020-10-14 16:19 | NUR ---
PT TO DISCHARGE BACK TO [facility]. THIS RN GAVE REPORT TO [place] . PT HAD IV'S REMOVED, NO SS OF INFECTION NOTED. PT TOLERATED WELL. MEDS FAXED TO PHARMACY. PT DRESSED BY STAFF. TAKEN BACK BY AMBULANCE. PT EDUCATED REGARDING MEDICATIONS.
--- NOTE | 2020-10-14 22:15 | NUR ---
This charge nurse in pt chart as [facility] received pt back to their care but needed discharging diagnosis.
== END 2020-10-14 14:46 | disposition home or self-care (01) | DRG 871 ==
LOC: ER 18:33 → ERHOLD 10-12 00:01 → PCU 10-12 12:48 → MEDS 10-13 23:40
PROVIDERS: Internal Medicine; Physician Assistant; ADMIT Internal Medicine
DX: A41.9 Sepsis, unspecified organism (principal); J96.01 Acute respiratory failure with hypoxia; J18.9 Pneumonia, unspecified organism; I16.0 Hypertensive urgency; Z20.822 Contact with and (suspected) exposure to COVID-19; Z86.73 Personal history of transient ischemic attack (TIA), and cerebral infarction without residual deficits; N40.0 Benign prostatic hyperplasia without lower urinary tract symptoms; I12.9 Hypertensive chronic kidney disease with stage 1 through stage 4 chronic kidney disease, or unspecified chronic kidney disease; N18.30 Chronic kidney disease, stage 3 unspecified; G62.9 Polyneuropathy, unspecified; E78.5 Hyperlipidemia, unspecified; Z89.422 Acquired absence of other left toe(s); D50.9 Iron deficiency anemia, unspecified
CPT/HCPCS: 0241U; 36415; 51702; 51798; 71045; 71260; 80048; 80053; 80185; 81001; 82550; 83605; 83880; 84145; 84484; 85025; 85027; 87040; 87086; 92610; 93005; 93010; 96361-59; 96365-59; 96366; 96372; 96375-59; 96376; 96376-59; 97165; 97530; 99285-25; A9270; G0378; J0360; J0696; J0744; J1170; J1650; J1885; J2270; J2405; J3010; J7030; Q9967

== ENCOUNTER 2020-10-15 10:42 | Emergency (ER) | payer OTHER ==
[~2020-10-15] VITALS: Ht 175.3 cm; Wt 81.7 kg
[~2020-10-15 10:42] MED LIST changes: +ACET500 PO; +ASPI325EC PO; +BISMATROL262 MG/15 PO; +DULCOLAX400 MG/5 M PO; +FERSU300 PO; +Hydrocortiso453.6 GM TOP; +LOPE2C PO; +ONDA4ODT SL; +PHENYTOIN SODI300 MG PO; +QUET25 PO; +QUETIAPINE FUM100 M1 PO; +TUMS500 MG PO; +[UNRECOGNIZED DRUG - OTHER] TOP
== END 2020-10-15 13:37 | disposition home or self-care (01) ==
LOC: ER 10:42
DX: Z46.6 Encounter for fitting and adjustment of urinary device (principal); I10 Essential (primary) hypertension; Z79.82 Long term (current) use of aspirin; Z79.899 Other long term (current) drug therapy
CPT/HCPCS: 99283

== ENCOUNTER 2020-10-23 16:25 | Inpatient (IN) | payer OTHER ==
[~2020-10-23] VITALS: Ht 175.3 cm; Wt 80.0 kg
[2020-10-23 17:21] LABS: BASOPHILS ABSOLUTE AUTO 0.04 K/mm3 (0.00-0.23); BASOPHILS PERCENT AUTO 0 % (0-2); EOSINOPHILS ABSOLUTE AUTO 0.07 K/mm3 (0.00-0.68); EOSINOPHILS PERCENT AUTO 0 % (0-6); Hematocrit 39.3 % (37.0-53.0); Hemoglobin 12.7 g/dL (13.5-17.5); IMMATURE GRAN ABSOLUTE AUTO 0.08 K/mm3 (0.00-0.10); IMMATURE GRAN PERCENT AUTO 1 % (0-1); LYMPHOCYTES ABSOLUTE AUTO 1.29 K/mm3 (0.84-5.20); LYMPHOCYTES PERCENT AUTO 8 % (21-46); MONOCYTES ABSOLUTE AUTO 0.88 K/mm3 (0.16-1.47); MONOCYTES PERCENT AUTO 5 % (4-13); Mean Corpuscular HGB 29.5 pg (26.0-34.0); Mean Corpuscular HGB Conc 32.3 g/dL (31.5-36.5); Mean Corpuscular Volume 91 fL (80-100); Mean Platelet Volume 9.4 fL (9.1-12.4); NEUTROPHILS ABSOLUTE AUTO 14.44 K/mm3 (1.96-9.15); NEUTROPHILS PERCENT AUTO 86 % (41-73); Platelet Count 292 K/mm3 (150-400); RDW Coefficient Variation 12.6 % (11.7-14.2); RDW Standard Deviation 42.1 fL (35.1-46.3)
[2020-10-23 17:44] LABS: Alanine Aminotransfer (ALT/SGP 80 U/L (12-78); Albumin, Blood 3.1 g/dL (3.4-5.0); Albumin/Globulin Ratio 0.8 (0.8-1.8); Alk Phos 112 U/L (50-136); Anion Gap 3 mmol/L (6-16); Aspartate Aminotrans (AST/SGOT 21 U/L (12-37); Bilirubin, Total 0.3 mg/dL (0.1-1.0); Blood Urea Nitrogen 19 mg/dL (8-24); Bun/Creatinine Ratio 21.6 (12.0-20.0); CO2, Blood 29 mmol/L (21-32); Calcium, Blood 8.8 mg/dL (8.5-10.1); Chloride, Blood 107 mmol/L (98-108); Creatinine, Blood 0.88 mg/dL (0.60-1.20); Globulin, Blood 3.9 g/dL (2.2-4.0); Glomerular Filtration Rate >60 (60-); Glucose, Blood 156 mg/dL (70-99); Potassium, Blood 4.2 mmol/L (3.5-5.5); Sodium, Blood 139 mmol/L (136-145); Troponin I 0.368 ng/mL (0.000-0.040)
[2020-10-23 18:54] LABS: International Normalized Ratio 0.97; Prothrombin Time Results 10.4 Sec (9.7-11.5)
[2020-10-23] MEDS ORDERED: GABA100 PO (19:28)
[2020-10-23] MEDS ORDERED: FUROSEMIDE40 MG PO (19:28)
[2020-10-23 20:41] LABS: Influenza A, PCR NEGATIVE (NEGATIVE); Influenza B, PCR NEGATIVE (NEGATIVE); Resp Syncytial Virus, PCR NEGATIVE (NEGATIVE); SARS-Cov-2 (COVID-19) PCR, MMC NEGATIVE (NEGATIVE)
--- NOTE | 2020-10-23 21:55 | NUR ---
ASSUMED PT CARE FROM ED PT ARRIVED ON [facility] ALERT AND ORIENTED AND ABLE TO MAKE NEEDS KNOWN. NSR; HR 90'S; SBP 140-160'S. PT VERY SOB; CAN'T TOLERATE LYING FLAT; THEREFORE, HE IS SITTING IN HIGH FOWLERS. PLACED 2L OF OXYGEN VIA NC; BIOX >90%. LUNG SOUNDS ARE CLEAR T/O ALL LOBES EXCEPT RIGHT LOWER LOBE HAS NOTED INSPIRATORY CRACKLES. PT RECENTLY ADMITTED ON 10/14/20 R/T SEPSIS PNEUMONIA IN WHICH HE IS UNSURE IF HE COMPLETED HIS COURSE OF ANTIBIOTICS. PT NOTED TO HAVE A TEMP OF 100.0. PT HAS AN AUDIBLE WHEEZE NOTED AND IS TACHYPNEIC. PT DECLINED HIS STOOL SOFTENERS D/T DIARRHEA SINCE HE WAS LAST DISCHARGED. BOWEL TONES ARE HYPOACTIVE AT THIS TIME. BLE'S HAVE NOTED ABRASIONS TO BILATERAL SHINS; AREA IS RED, SWOLLEN, AND WARM TO THE TOUCH. +2 PITTING EDEMA TO BILATERAL FEET AND ANKLES WITH +1 PITTING EDEMA TO BLE'S. 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 PT STATES HE UTILIZES A FWW TO AMBULATE SHORT DISTANCES AT [place]; HOWEVER, MAJORITY OF HIS TIME IS SPENT IN HIS WHEELCHAIR. HE IS ABLE TO SHIFT OWN WEIGHT; HOWEVER, WILL ASSIST WITH MAJOR TURNS. ABLE TO SWALLOW THIN LIQUIDS WITH NO COUGHING OR CHOKING NOTED. CALL LIGHT WITHIN REACH AND PT IS ABLE TO MAKE NEEDS KNOWN.
[2020-10-23] MEDS ORDERED: GUAI600T33 PO (22:23)
[2020-10-23] MEDS ORDERED: BISA10S PR (22:23)
[2020-10-23] MEDS ORDERED: BISM300CH PO (22:25)
[2020-10-23] MEDS ORDERED: TUMS500 MG PO (22:26)
[2020-10-23] MEDS ORDERED: LOPE2C PO (22:28)
[2020-10-23] MEDS ORDERED: DULCOLAX400 MG/51 PO (22:34)
[2020-10-23] MEDS ORDERED: QUET25 PO (22:35)
[2020-10-23] MEDS ORDERED: ZOFRAN4 MG SL (22:35)
[2020-10-23] MEDS ORDERED: Fleet Enema132 ML PR (22:36)
[2020-10-24 00:41] LABS: Source, Urine Catheter
[2020-10-24 00:45] LABS: Appearance, Urine Clear (Clear); Bilirubin, Urine Neg (Neg); Blood, Urine 4+ (Neg); Color, Urine Yellow (P-Yellow); Glucose Qualitative, Urine Neg (Neg); Ketones, Urine Neg (Neg); Leukocyte Esterase, Urine 1+ (Neg); Nitrite, Urine Neg (Neg); Protein, Urine 2+ (Neg); Urobilinogen, Urine NORM (Normal)
[2020-10-24 01:09] LABS: Bacteria Few /hpf; Mucus Light (0-Heavy); Squamous Epithelial Cells Not Seen /hpf (Few)
[2020-10-24 04:00] LABS: BASOPHILS ABSOLUTE AUTO 0.02 K/mm3 (0.00-0.23); BASOPHILS PERCENT AUTO 0 % (0-2); EOSINOPHILS ABSOLUTE AUTO 0.02 K/mm3 (0.00-0.68); EOSINOPHILS PERCENT AUTO 0 % (0-6); Hematocrit 32.1 % (37.0-53.0); Hemoglobin 10.5 g/dL (13.5-17.5); IMMATURE GRAN ABSOLUTE AUTO 0.06 K/mm3 (0.00-0.10); IMMATURE GRAN PERCENT AUTO 0 % (0-1); LYMPHOCYTES ABSOLUTE AUTO 1.14 K/mm3 (0.84-5.20); LYMPHOCYTES PERCENT AUTO 9 % (21-46); MONOCYTES ABSOLUTE AUTO 1.06 K/mm3 (0.16-1.47); MONOCYTES PERCENT AUTO 8 % (4-13); Mean Corpuscular HGB 30.1 pg (26.0-34.0); Mean Corpuscular HGB Conc 32.7 g/dL (31.5-36.5); Mean Corpuscular Volume 92 fL (80-100); Mean Platelet Volume 9.8 fL (9.1-12.4); NEUTROPHILS ABSOLUTE AUTO 11.09 K/mm3 (1.96-9.15); NEUTROPHILS PERCENT AUTO 83 % (41-73); Platelet Count 234 K/mm3 (150-400); RDW Coefficient Variation 12.7 % (11.7-14.2); RDW Standard Deviation 41.9 fL (35.1-46.3); Red Blood Cell Count 3.49 M/mm3 (4.30-5.90); White Blood Cell Count 13.39 K/mm3 (4.00-11.30)
[2020-10-24 04:16] LABS: Anion Gap 5 mmol/L (6-16); Blood Urea Nitrogen 20 mg/dL (8-24); Bun/Creatinine Ratio 24.1 (12.0-20.0); CO2, Blood 26 mmol/L (21-32); Chloride, Blood 109 mmol/L (98-108); Creatinine, Blood 0.83 mg/dL (0.60-1.20); Glomerular Filtration Rate >60 (60-); Glucose, Blood 134 mg/dL (70-99); Sodium, Blood 140 mmol/L (136-145)
--- NOTE | 2020-10-24 04:57 | NUR ---
END OF SHIFT SUMMARY PT REMAINS ON 2L VIA NC WITH OXYGEN SATURATIONS >90%. ALERT AND ORIENTED AND ABLE TO MAKE NEEDS KNOWN. ABLE TO REPOSITION SELF IN BED. LUNG SOUNDS REMAIN UNCHANGED FROM EARLIER. NSR WITH T WAVE INVERSION (NOT NEW); HR 70-90'S. BP'S FLUCTUATE FROM SYSTOLIC 120'S-150'S. HEPARIN CONTINUES TO INFUSE AT 15 UNITS/KG/HR PER PHARMACY CONSULT. NS TKO WITH [facility] CALLED FOR AN UPDATE; ASKED THAT THEY ARE NOTIFIED PRIOR TO PT BEING DISCHARGED AND TRANSPORTED BACK TO [facility] D/T STAFF NEEDING TO MEET EMS OUTSIDE SECONDARY TO COVID RESTRICTIONS; WILL PASS ALONG IN REPORT AND PLACE ALERT ON CHART. CALL LIGHT WITHIN REACH; PT ABLE TO MAKE HIS NEEDS KNOWN. WILL CONTINUE TO MONITOR UNTIL REPORT IS HANDED OFF TO ONCOMING RN.
--- NOTE | 2020-10-24 08:35 | NUR ---
ASSUMED CARE: REPORT RECEIVED FROM LELE Clement RN. ASSUMED CARE OF THIS PT AT APPROX 0700. ON ASSESSMENT, THE PT IS RESTING QUEITLY. HE AWAKENS EASILY TO VERBAL STIMULUS & IS ALERT/ORIENTED AT THAT TIME. PT IS SOMEWHAT SLOW TO RESPOND & FLAT IN AFFECT. LS ARE DIM IN BASES W/ FINE CRACKLES NOTED TO RLL. O2 SATS > 95% ON 2L NC. PT STS HAVING NO PAIN THIS AM, EVEN W/ FULL INHALATION. MONITOR SHOWS SR W/ HR 60-70s, BP STABLE, PT DENIES CP. ABD IS FIRM, NONTENDER TO PALPATION. PT HAS NO CURRENT GI COMPLAINTS. TEMP DIALLO PATENT/ DRAINING YELLOW URINE. SKIN CONDITION OVERALL FRAGILE. EDEMA & RED RASIED SKIN TO BLE, PT HAS HX BLE CELLULITIS. WILL CONTINUE TO MONITOR & UPDATE NEEDED.
--- NOTE | 2020-10-24 10:07 | NUR ---
DR REVELES: PROVIDER AT BEDSIDE TO EVAL PT. SHE FEELS THAT HE IS IMPROVING & WOULD LIKE O2 TO BE TITRATED DOWN TOLERATED. THERE IS ALSO NO PLAN TO CONSULT DR DAVID FOR INTERVENTION AT THIS TIME & WOULD LIKE THE PT TO RECEIVE BREAKFAST. SHE ALSO STS TO D/C YO[facility] & THAT PT MAY BE MEDICAL STATUS W/ TELE. ORDERS PLACED. WILL D/C [facility] AFTER PT COMPLETES BREAKFAST TRAY.
--- NOTE | 2020-10-24 18:41 | NUR ---
SHIFT SUMMARY / TRANSFER TO MEDICAL FLOOR: NO ACUTE CHANGES SINCE PRIOR UPDATES. PT REMAINS A&O, PLEASANT & COOPERATIVE. HE IS OVERALL PAIN FREE, BUT DOES HAVE INSTANCES OF PAIN THAT PRESENT SIMILARLY TO MUSCLE SPASMS IN R UPPER CHEST. PAIN IS SHARP IN NATURE & THEN SUBSIDES QUICKLY AT REST. LS W/ FINE CRACKLES TO RLL, PT ON RA W/ O2 SATS > 92%. MONITOR SHOWS SR W/ HR 60s, BP STABLE. PT HAS NO GI COMPLAINTS. HAS NOT VOIDED SINCE DIALLO REMOVAL BUT OVERALL HAS HAD LITTLE PO INTAKE OF FLUIDS & DENIES FEELING THE NEED TO VOID URINE. SKIN OVERALL UNCHANGED, Q2H REPOSITIONING TO MAINTAIN SKIN INTEGRITY. REPORT HAS BEEN GIVEN TO MED FLOOR RN TO ASSUME CARE OF THIS PT. CHART & ALL BELONGINGS HAVE BEEN TAKEN UP W/ THE PT BY TEJA Vicente, YARA, AT APPROX [id number].
--- NOTE | 2020-10-24 18:59 | NUR ---
ASSUMED CARE OF PATIENT AT THIS TIME. PT WAS A TRANSFER FROM ICU. WILL REPORT TO POLO MARTE.
[2020-10-25 05:03] LABS: Hematocrit 30.7 % (37.0-53.0); Hemoglobin 10.1 g/dL (13.5-17.5); Mean Corpuscular HGB Conc 32.9 g/dL (31.5-36.5); Mean Corpuscular Volume 91 fL (80-100); Mean Platelet Volume 9.7 fL (9.1-12.4); Platelet Count 227 K/mm3 (150-400); RDW Coefficient Variation 12.7 % (11.7-14.2); RDW Standard Deviation 42.5 fL (35.1-46.3); Red Blood Cell Count 3.37 M/mm3 (4.30-5.90); White Blood Cell Count 12.47 K/mm3 (4.00-11.30)
[2020-10-25 05:41] LABS: Alanine Aminotransfer (ALT/SGP 46 U/L (12-78); Albumin, Blood 2.2 g/dL (3.4-5.0); Albumin/Globulin Ratio 0.6 (0.8-1.8); Alk Phos 74 U/L (50-136); Anion Gap 6 mmol/L (6-16); Aspartate Aminotrans (AST/SGOT 17 U/L (12-37); Bilirubin, Total 0.3 mg/dL (0.1-1.0); Blood Urea Nitrogen 17 mg/dL (8-24); Bun/Creatinine Ratio 20.6 (12.0-20.0); CO2, Blood 24 mmol/L (21-32); Calcium, Blood 8.4 mg/dL (8.5-10.1); Chloride, Blood 109 mmol/L (98-108); Creatinine, Blood 0.82 mg/dL (0.60-1.20); Globulin, Blood 3.4 g/dL (2.2-4.0); Glomerular Filtration Rate >60 (60-); Glucose, Blood 110 mg/dL (70-99); Potassium, Blood 3.6 mmol/L (3.5-5.5); Sodium, Blood 139 mmol/L (136-145); Total Protein, Blood 5.6 g/dL (6.4-8.2)
--- NOTE | 2020-10-25 06:20 | NUR ---
SHIFT SUMMARY- PT. A&OX4, HX OF AUTISM. PT. WC BOUND @BASELINE, ON BEDREST DURING THE NIGHT. DENIED C/O CP OR SOB. HEAPRIN GTT INFUSING, NO CHANGE IN RATE THIS SHIFT. PT. TOLERATING WELL. USES URINAL AT BEDSIDE W/ASSISTANCE, ABLE TO MAKE NEEDS KNOWN. SLEPT ON/OFF T/O THE NIGHT, NO APPARENT DISTRESS NOTED. VSS. CALL LIGHT WITHIN REACH AND SIDE RAILS UPX2. WILL CONT TO MONITOR.
--- NOTE | 2020-10-25 19:03 | NUR ---
SHIFT SUMMARY PT A/O X4; PLEASANT AND COOPERATIVE WITH CARE. HEPARIN DRIP, NITRO PATCH, AND ANTIBIOTICS DC'D THIS SHIFT. PT USES A WHEELCHAIR AND SOMETIMES A WALKER AT BASELINE. CONT. AND USES THE URINAL IN BED. NO ACUTE CHANGES THIS SHFT. VSS; REPORT GIVEN TO POLO MARTE.
[2020-10-26 05:45] LABS: BASOPHILS ABSOLUTE AUTO 0.03 K/mm3 (0.00-0.23); BASOPHILS PERCENT AUTO 0 % (0-2); EOSINOPHILS PERCENT AUTO 2 % (0-6); Hematocrit 33.2 % (37.0-53.0); Hemoglobin 10.8 g/dL (13.5-17.5); IMMATURE GRAN ABSOLUTE AUTO 0.04 K/mm3 (0.00-0.10); IMMATURE GRAN PERCENT AUTO 0 % (0-1); LYMPHOCYTES ABSOLUTE AUTO 1.24 K/mm3 (0.84-5.20); LYMPHOCYTES PERCENT AUTO 12 % (21-46); MONOCYTES ABSOLUTE AUTO 0.98 K/mm3 (0.16-1.47); MONOCYTES PERCENT AUTO 10 % (4-13); Mean Corpuscular HGB 29.4 pg (26.0-34.0); Mean Corpuscular HGB Conc 32.5 g/dL (31.5-36.5); Mean Corpuscular Volume 91 fL (80-100); Mean Platelet Volume 9.6 fL (9.1-12.4); NEUTROPHILS PERCENT AUTO 76 % (41-73); Platelet Count 242 K/mm3 (150-400); RDW Coefficient Variation 12.5 % (11.7-14.2); RDW Standard Deviation 41.7 fL (35.1-46.3); Red Blood Cell Count 3.67 M/mm3 (4.30-5.90); White Blood Cell Count 10.29 K/mm3 (4.00-11.30)
--- NOTE | 2020-10-26 05:50 | NUR ---
SHIFT SUMMARY- PT. SLEPT ON AND OFF DURING THE NIGHT. APPEARED ANXIOUS AND C/O GENERALIZED PAIN. MEDICATED WITH PAIN MED PER EMAR, REPORTED GOOD RELIEF. PT. HAD MANY INCONT VOIDS, ATTENDS IN PLACE. VSS. CALL LIGHT WITHIN REACH AND SIDE RAILS UPX2. WILL CONT TO MONITOR.
[2020-10-26 06:04] LABS: Alanine Aminotransfer (ALT/SGP 51 U/L (12-78); Albumin, Blood 2.3 g/dL (3.4-5.0); Albumin/Globulin Ratio 0.6 (0.8-1.8); Alk Phos 76 U/L (50-136); Anion Gap 4 mmol/L (6-16); Aspartate Aminotrans (AST/SGOT 26 U/L (12-37); Bilirubin, Total 0.3 mg/dL (0.1-1.0); Blood Urea Nitrogen 17 mg/dL (8-24); Bun/Creatinine Ratio 20.3 (12.0-20.0); CO2, Blood 27 mmol/L (21-32); Calcium, Blood 8.8 mg/dL (8.5-10.1); Chloride, Blood 110 mmol/L (98-108); Creatinine, Blood 0.84 mg/dL (0.60-1.20); Globulin, Blood 3.8 g/dL (2.2-4.0); Glomerular Filtration Rate >60 (60-); Glucose, Blood 109 mg/dL (70-99); Potassium, Blood 3.9 mmol/L (3.5-5.5); Sodium, Blood 141 mmol/L (136-145); Total Protein, Blood 6.1 g/dL (6.4-8.2)
[2020-10-26 17:11] LABS: Source, Urine Clean Catch
[2020-10-26 17:48] LABS: Appearance, Urine Clear (Clear); Bilirubin, Urine Neg (Neg); Blood, Urine 4+ (Neg); Color, Urine Yellow (P-Yellow); Glucose Qualitative, Urine Neg (Neg); Ketones, Urine Neg (Neg); Leukocyte Esterase, Urine Neg (Neg); Nitrite, Urine Neg (Neg); Protein, Urine 1+ (Neg); Urobilinogen, Urine NORM (Normal)
[2020-10-26 17:53] LABS: Bacteria Not Seen /hpf; Red Blood Cells, Urine 0-2 /hpf (0-2); Squamous Epithelial Cells Not Seen /hpf (Few); White Blood Cells, Urine Not Seen /hpf (0-5)
--- NOTE | 2020-10-26 19:15 | NUR ---
SHIFT SUMMARY PT AXO X4, PLEASANT AND COOPERATIVE WITH CARE. DENIES PAIN, SOB AND NV THIS SHIFT. BLADDER SCAN COMPLETED AFTER PT COMPLAINED OF "FEELING FULL." GREATER THAN 999ML RETAINED, STRAIGHT CATH WITH 775ML OUT. DR REVELES AWARE. BED IN LOW POSITION, CALL LIGHT WITHIN REACH, BED ALARM ON. NO OTHER CHANGES THIS SHIFT.
--- NOTE | 2020-10-27 04:59 | NUR ---
SHIFT SUMMARY- PT. APPEARED TO HAVE RESTED COMFORTABLY MOST OF THE NIGHT, NO APPARENT DISTRESS NOTED. BLADDER SCAN DONE PVR= 186MLS. PT. CONT/INCONT, USES URINAL IN BED, ALSO ATTENDS IN PLACE. HAD NO COMPLAINTS THIS SHIFT. PT. ABLE TO MAKE NEEDS KNOWN. VSS. CALL LIGHT WITHIN REACH AND SIDE RAILS UPX2. WILL CONT TO MONITOR.
[2020-10-27 05:11] LABS: Hematocrit 33.3 % (37.0-53.0); Hemoglobin 10.7 g/dL (13.5-17.5); Mean Corpuscular HGB 29.4 pg (26.0-34.0); Mean Corpuscular HGB Conc 32.1 g/dL (31.5-36.5); Mean Corpuscular Volume 92 fL (80-100); Mean Platelet Volume 9.9 fL (9.1-12.4); Platelet Count 263 K/mm3 (150-400); RDW Coefficient Variation 12.6 % (11.7-14.2); RDW Standard Deviation 42.3 fL (35.1-46.3); Red Blood Cell Count 3.64 M/mm3 (4.30-5.90)
[2020-10-27 05:45] LABS: Anion Gap 7 mmol/L (6-16); Blood Urea Nitrogen 19 mg/dL (8-24); Bun/Creatinine Ratio 24.2 (12.0-20.0); CO2, Blood 25 mmol/L (21-32); Calcium, Blood 8.5 mg/dL (8.5-10.1); Chloride, Blood 109 mmol/L (98-108); Creatinine, Blood 0.79 mg/dL (0.60-1.20); Glomerular Filtration Rate >60 (60-); Glucose, Blood 98 mg/dL (70-99); Potassium, Blood 3.9 mmol/L (3.5-5.5); Sodium, Blood 141 mmol/L (136-145)
--- NOTE | 2020-10-27 11:58 | NUR ---
50 ml urination, states it hurt but at least it came out yesterday it did not, yesterday bladder scan > 500 pt unable to urinate, today bs 200 but able to urinate, states he felt no urge to urinate just tried to see it anything came, bladder scan 300 +, states he will try to urinate after lunch
--- NOTE | 2020-10-27 14:07 | NUR ---
pt stated that his lower abdmn hurt, tried urinal no flow, bladder scan showed 812 ml, straight cath 850 yellow/orange urine with no negative side effect will continue to monitor and treat
--- NOTE | 2020-10-27 19:10 | NUR ---
sitting in chair when entered room with noc nurse for bsr, stated he was feeling better but still could not urinate, got cath when came in, could urinate first day after it was removed, yesteday >900 bladder scan, straight cath, today low bladder scans until 1700 got 812ml, st cath - no pain but no urine either, rm air, saline locked, call light in reach sitting up in chair with alarm on
--- NOTE | 2020-10-28 04:24 | NUR ---
SHIFT SUMMARY A/O, ABLE TO MAKE NEEDS KNOWN. SLOW TO RESPOND AT TIMES. COOPERATIVE WITH CARE. CALLS AND ANSWERS QUESTIONS APPROPRIATELY. NO C/O PAIN/DISCOMFORT. MINIMAL VOID OUTPUT; WILL BLADDER SCAN AND STRAIGHT CATH PER ORDERS. APPEARED TO REST MUCH OF THE NIGHT. NO ACUTE CHANGES NOTED. BED REMAINS IN LOWEST POSITION. CALL LIGHT AND BELONGINGS WITHIN REACH. CONTINUE WITH CURRENT PLAN OF CARE. REPORT TO ONCOMING RN.
[2020-10-28 10:57] LABS: Influenza A, PCR NEGATIVE (NEGATIVE); Influenza B, PCR NEGATIVE (NEGATIVE); Resp Syncytial Virus, PCR NEGATIVE (NEGATIVE); SARS-Cov-2 (COVID-19) PCR, MMC NEGATIVE (NEGATIVE)
--- NOTE | 2020-10-28 11:05 | NUR ---
COMPLAINED OF CHEST PAIN WHILE WORKING WITH PT THAT REDUCED SPONTANEOUSLY TO JMILD CHEST PRESSURE. HEART 100-110'S BP 168/96, SPO2 95% ON RA. NOTIFIED, NO NEW ORDERS, OKAY FOR DISCHARGE.
[2020-10-28] MEDS ORDERED: DOCU100 PO (12:19)
[2020-10-28] MEDS ORDERED: FINA5 PO (12:20)
[2020-10-28] MEDS ORDERED: XARELTO20 MG (12:22)
[2020-10-28] MEDS ORDERED: XARELTO20 MG PO (12:28)
--- NOTE | 2020-10-28 15:00 | NUR ---
Picked up by [facility] for transport to [place].
--- NOTE | 2020-10-28 16:53 | NUR ---
RECIEVED CALL FROM [facility] REGARDING PHENYTOIN AND XARELTO: CONTRAINDICATED FOR ADMINISTRATION TOGETHER. PHARMACIST STATES THAT PHENYTOIN MAKES XARELTO LESS EFFECTIVE. DR REVELES NOTIFIED, NO NEW ORDERS.
== END 2020-10-28 14:59 | disposition home health service (06) | DRG 871 ==
LOC: ER 16:25 → MEDS 21:20 → ICUE 21:20 → ICUW 21:20 → ICUE 21:22 → MEDS 10-24 18:43
PROVIDERS: Emergency Medicine; Internal Medicine; Nurse Practitioner Acute Care; ADMIT Internal Medicine
DX: A41.9 Sepsis, unspecified organism (principal); I26.99 Other pulmonary embolism without acute cor pulmonale; J96.01 Acute respiratory failure with hypoxia; J18.9 Pneumonia, unspecified organism; F84.0 Autistic disorder; Z99.3 Dependence on wheelchair; Z20.822 Contact with and (suspected) exposure to COVID-19; Z89.422 Acquired absence of other left toe(s); I12.9 Hypertensive chronic kidney disease with stage 1 through stage 4 chronic kidney disease, or unspecified chronic kidney disease; N18.30 Chronic kidney disease, stage 3 unspecified; N40.0 Benign prostatic hyperplasia without lower urinary tract symptoms; Z86.73 Personal history of transient ischemic attack (TIA), and cerebral infarction without residual deficits; I16.0 Hypertensive urgency; R33.9 Retention of urine, unspecified
CPT/HCPCS: 0241U; 36415; 51701; 51702; 71045; 71260; 80048; 80053; 81001; 83605; 84153; 84484; 85025; 85027; 85379; 85610; 85730; 87040; 87086; 93005; 93010; 96365-59; 96366; 96375-59; 97110; 97116; 97162; 99285-25; A9270; J0692; J1644; J2270; J3370; J7050; Q9967

== ENCOUNTER → 2020-11-19 | Outpatient (CLI) | payer OTHER ==
[~2020-11-19] MED LIST changes: +BISM300CH PO; +CEPH500 PO; +DOCU100 PO; +DULCOLAX400 MG/51 PO; +FINA5 PO; +FLUT.05NI; +FURO80 PO; +FUROSEMIDE40 MG PO; +KETO15TC TOP; +LOSA25 PO; +METO5 PO; +POTCHL20ER PO; +SPIR25 PO; +VITAMIN D5000 UNIT PO; +XARELTO20 MG; +XARELTO20 MG PO; +ZOFRAN4 MG SL
[2020-11-19 13:36] LABS: BASOPHILS ABSOLUTE AUTO 0.04 K/mm3 (0.00-0.23); BASOPHILS PERCENT AUTO 1 % (0-2); EOSINOPHILS ABSOLUTE AUTO 0.23 K/mm3 (0.00-0.68); EOSINOPHILS PERCENT AUTO 3 % (0-6); Hematocrit 37.6 % (37.0-53.0); Hemoglobin 12.1 g/dL (13.5-17.5); IMMATURE GRAN ABSOLUTE AUTO 0.03 K/mm3 (0.00-0.10); IMMATURE GRAN PERCENT AUTO 0 % (0-1); LYMPHOCYTES ABSOLUTE AUTO 1.39 K/mm3 (0.84-5.20); LYMPHOCYTES PERCENT AUTO 17 % (21-46); MONOCYTES ABSOLUTE AUTO 0.71 K/mm3 (0.16-1.47); MONOCYTES PERCENT AUTO 9 % (4-13); Mean Corpuscular HGB 29.6 pg (26.0-34.0); Mean Corpuscular HGB Conc 32.2 g/dL (31.5-36.5); Mean Corpuscular Volume 92 fL (80-100); Mean Platelet Volume 10.7 fL (9.1-12.4); NEUTROPHILS ABSOLUTE AUTO 5.65 K/mm3 (1.96-9.15); NEUTROPHILS PERCENT AUTO 70 % (41-73); Platelet Count 174 K/mm3 (150-400); RDW Coefficient Variation 13.2 % (11.7-14.2); RDW Standard Deviation 45.1 fL (35.1-46.3); Red Blood Cell Count 4.09 M/mm3 (4.30-5.90); White Blood Cell Count 8.05 K/mm3 (4.00-11.30)
[2020-11-19 14:42] LABS: Albumin, Blood 2.9 g/dL (3.4-5.0); Anion Gap 5 mmol/L (6-16); Blood Urea Nitrogen 30 mg/dL (8-24); Bun/Creatinine Ratio 30.4 (12.0-20.0); CO2, Blood 30 mmol/L (21-32); Calcium, Blood 8.5 mg/dL (8.5-10.1); Chloride, Blood 109 mmol/L (98-108); Creatinine, Blood 0.99 mg/dL (0.60-1.20); Ferritin, Serum 85 ng/mL (26-388); Glomerular Filtration Rate >60 (60-); Glucose, Blood 108 mg/dL (70-99); Iron Serum 45 ug/dL (65-175); Percent Saturation 21.5 % (20.0-50.0); Phosphorus, Blood 3.5 mg/dL (2.5-4.9); Potassium, Blood 4.2 mmol/L (3.5-5.5); Sodium, Blood 144 mmol/L (136-145); Total Iron Binding Capacity 209 ug/dL (250-450)
[2020-11-20 07:10] LABS: HBSAG SCREEN Negative (Negative); HEP A AB, IGM Negative (Negative); HEP B CORE AB, IGM Negative (Negative); HEP C VIRUS AB 0.1 (0.0-0.9)
== END | disposition home or self-care (01) ==
LOC: LAB 12:23 → LAB SHORT 12:23
PROVIDERS: Internal Medicine Nephrology
DX: N18.2 Chronic kidney disease, stage 2 (mild) (principal); D63.1 Anemia in chronic kidney disease; N25.81 Secondary hyperparathyroidism of renal origin; E55.9 Vitamin D deficiency, unspecified; E78.00 Pure hypercholesterolemia, unspecified; N40.1 Benign prostatic hyperplasia with lower urinary tract symptoms; R76.9 Abnormal immunological finding in serum, unspecified; R94.5 Abnormal results of liver function studies; R94.8 Abnormal results of function studies of other organs and systems; G60.9 Hereditary and idiopathic neuropathy, unspecified
CPT/HCPCS: 80069; 80074; 82306; 82607; 82728; 82746; 83540; 83550; 84153; 85025

== ENCOUNTER → 2020-11-21 | Outpatient (CLI) | payer OTHER ==
[2020-11-21 19:49] LABS: Creatinine Urine 74.6 mg/dL (27.00-270.00); Protein, Urine Quantitative 15.3 mg/dL (0.0-11.9)
[2020-11-21 19:52] LABS: Microalbumin, Urine Quant. 39.7 mg/L (0.000-20.000)
== END | disposition home or self-care (01) ==
LOC: LAB 16:00 → LAB SHORT 16:00
PROVIDERS: Internal Medicine Nephrology
DX: N18.2 Chronic kidney disease, stage 2 (mild) (principal); D63.1 Anemia in chronic kidney disease; N25.81 Secondary hyperparathyroidism of renal origin; E55.9 Vitamin D deficiency, unspecified; E78.00 Pure hypercholesterolemia, unspecified; N40.1 Benign prostatic hyperplasia with lower urinary tract symptoms; R76.9 Abnormal immunological finding in serum, unspecified; R94.5 Abnormal results of liver function studies; G60.9 Hereditary and idiopathic neuropathy, unspecified; R94.6 Abnormal results of thyroid function studies; R94.8 Abnormal results of function studies of other organs and systems
CPT/HCPCS: 81050; 82043; 82570; 84156

== ENCOUNTER 2021-02-07 17:17 | Inpatient (IN) | payer MEDICARE, OTHER ==
[~2021-02-07] VITALS: Ht 175.3 cm; Wt 75.5 kg
[~2021-02-07 17:17] MED LIST changes: -CEPH500 PO; -FLUT.05NI; -FURO80 PO; -KETO15TC TOP; -LOSA25 PO; -METO5 PO; -POTCHL20ER PO; -SPIR25 PO; -VITAMIN D5000 UNIT PO
[2021-02-07] MEDS ORDERED: SPIR25 PO (17:47)
[2021-02-07] MEDS ORDERED: VITAMIN D5000 UNIT PO (17:48)
[2021-02-07] MEDS ORDERED: XARELTO20 MG PO (17:51)
[2021-02-07] MEDS ORDERED: METO5 PO (17:53)
[2021-02-07] MEDS ORDERED: LOSA25 PO (17:53)
[2021-02-07 17:57] LABS: BASOPHILS ABSOLUTE AUTO 0.04 K/mm3 (0.00-0.23); BASOPHILS PERCENT AUTO 0 % (0-2); EOSINOPHILS ABSOLUTE AUTO 0.14 K/mm3 (0.00-0.68); EOSINOPHILS PERCENT AUTO 1 % (0-6); Hematocrit 37.9 % (37.0-53.0); Hemoglobin 13.1 g/dL (13.5-17.5); IMMATURE GRAN ABSOLUTE AUTO 0.06 K/mm3 (0.00-0.10); IMMATURE GRAN PERCENT AUTO 1 % (0-1); LYMPHOCYTES ABSOLUTE AUTO 1.34 K/mm3 (0.84-5.20); LYMPHOCYTES PERCENT AUTO 11 % (21-46); MONOCYTES ABSOLUTE AUTO 0.92 K/mm3 (0.16-1.47); MONOCYTES PERCENT AUTO 7 % (4-13); Mean Corpuscular HGB 30.9 pg (26.0-34.0); Mean Corpuscular HGB Conc 34.6 g/dL (31.5-36.5); Mean Corpuscular Volume 89 fL (80-100); Mean Platelet Volume 10.4 fL (9.1-12.4); NEUTROPHILS ABSOLUTE AUTO 9.85 K/mm3 (1.96-9.15); NEUTROPHILS PERCENT AUTO 80 % (41-73); Platelet Count 186 K/mm3 (150-400); RDW Coefficient Variation 13.2 % (11.7-14.2); RDW Standard Deviation 43.1 fL (35.1-46.3); Red Blood Cell Count 4.24 M/mm3 (4.30-5.90); White Blood Cell Count 12.35 K/mm3 (4.00-11.30)
[2021-02-07 18:14] LABS: Alanine Aminotransfer (ALT/SGP 52 U/L (12-78); Albumin, Blood 3.3 g/dL (3.4-5.0); Albumin/Globulin Ratio 0.8 (0.8-1.8); Alk Phos 135 U/L (50-136); Anion Gap 5 mmol/L (6-16); Aspartate Aminotrans (AST/SGOT 32 U/L (12-37); Bilirubin, Total 0.3 mg/dL (0.1-1.0); Blood Urea Nitrogen 34 mg/dL (8-24); CO2, Blood 38 mmol/L (21-32); Calcium, Blood 8.8 mg/dL (8.5-10.1); Chloride, Blood 96 mmol/L (98-108); Creatinine, Blood 1.26 mg/dL (0.60-1.20); Globulin, Blood 3.9 g/dL (2.2-4.0); Glomerular Filtration Rate 59 (60-); Glucose, Blood 154 mg/dL (70-99); Potassium, Blood 2.7 mmol/L (3.5-5.5); Sodium, Blood 139 mmol/L (136-145); Total Protein, Blood 7.2 g/dL (6.4-8.2); Troponin I <0.015 ng/mL (0.000-0.040)
[2021-02-07] MEDS ORDERED: FURO80 PO (22:02)
[2021-02-07] MEDS ORDERED: POTCHL20ER PO (22:03)
[2021-02-07 22:52] LABS: Magnesium, Blood 1.8 mg/dL (1.6-2.4); Phosphorus, Blood 3.1 mg/dL (2.5-4.9); Uric Acid, Blood 10.1 mg/dL (3.5-7.2)
--- NOTE | 2021-02-07 23:00 | NUR ---
ADMISSION NOTE RECEIVED HAND OFF FROM Eulalio HECTOR RN USING SBAR. TRANSPORTED TO ROOM VIA STRECHER. TRANSFERED SELF TO BED WITH STANDBY ASSIST, AND PLACED IN SEMI FOWLERS, TOLERATED WELL. AAO X3, STEVENS, FOLLOWS ALL COMMANDS. ORIENTED TO ROOM, CALL SYSTEM, AND POC, VOICES UNDERSTANDING. RESPIRATIONS EVEN AND UNLABORED ON ROOM AIR. LUNG SOUNDS CLEAR BILATERALLY. ABDOMEN SOFT AND NONDISTENDED. BOWEL SOUNDS PRESENT IN ALL QUADS. RIGHT HAND 20 PIV IS PATENT, BEGAN LEAKING AROUND DRESSING AFTER PT USED KNUCKLES TO ASSIST HIMSELF IN TRANSFER. DRESSING CHANGED AND PIV FLUSHES WITH EASE. IVF INFUSING FROM ER PER ORDERS. CONTINENT OF BOWEL AND BLADDER, USES URINAL AT BEDSIDE WITH ASSISTANCE. WILL SEND UA WHEN AVAILABLE. BLE EDEMA 2+. 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 ADMISSION ASSESSMENT IN PROGRESS. SAFETY MEASURES IN PLACE. WILL CONTINUE TO MONITOR AND ADDRESS NEEDS AND CHANGES THROUGHOUT REMAINDER OF SHIFT.
[2021-02-07] MEDS ORDERED: FLUT.05NI (23:34)
[2021-02-07] MEDS ORDERED: KETO15TC TOP (23:38)
[2021-02-08 00:23] LABS: Source, Urine Clean Catch
[2021-02-08 00:25] LABS: Bilirubin, Urine Neg (Neg); Blood, Urine 2+ (Neg); Glucose Qualitative, Urine Neg (Neg); Ketones, Urine Neg (Neg); Leukocyte Esterase, Urine 1+ (Neg); Nitrite, Urine Neg (Neg); Protein, Urine Neg (Neg); Specific Gravity, Urine 1.005 (1.003-1.022); Urobilinogen, Urine NORM (Normal)
[2021-02-08 00:33] LABS: Appearance, Urine Clear (Clear); Color, Urine Yellow (P-Yellow)
[2021-02-08 00:34] LABS: Bacteria Not Seen /hpf; Squamous Epithelial Cells Rare /hpf (Few); White Blood Cells, Urine 0-2 /hpf (0-5)
--- NOTE | 2021-02-08 04:32 | NUR ---
SHIFT SUMMARY LYING IN SEMI FOWLERS WITH EYES CLOSED, HAS RESTED WELL SINCE ADMIT. AAO X3, STEVENS, FOLLOWS ALL COMMANDS. UA COMPLETED PER MD ORDERS. HAS BEEN PLEASANT AND COOPERATIVE WITH CARE. SAFETY MEASURES IN PLACE. WILL CONTINUE TO MONITOR AND ADDRESS NEEDS AND CHANGES THROUGHOUT REMAINDER OF SHIFT, AND GIVE HAND OFF TO ONCOMING SHIFT USING SBAR.
[2021-02-08 07:42] LABS: BASOPHILS ABSOLUTE AUTO 0.03 K/mm3 (0.00-0.23); BASOPHILS PERCENT AUTO 1 % (0-2); EOSINOPHILS ABSOLUTE AUTO 0.11 K/mm3 (0.00-0.68); EOSINOPHILS PERCENT AUTO 2 % (0-6); Hematocrit 28.9 % (37.0-53.0); Hemoglobin 9.8 g/dL (13.5-17.5); IMMATURE GRAN ABSOLUTE AUTO 0.03 K/mm3 (0.00-0.10); IMMATURE GRAN PERCENT AUTO 1 % (0-1); LYMPHOCYTES PERCENT AUTO 27 % (21-46); MONOCYTES ABSOLUTE AUTO 0.65 K/mm3 (0.16-1.47); MONOCYTES PERCENT AUTO 12 % (4-13); Mean Corpuscular HGB 31.3 pg (26.0-34.0); Mean Corpuscular HGB Conc 33.9 g/dL (31.5-36.5); Mean Corpuscular Volume 92 fL (80-100); Mean Platelet Volume 10.3 fL (9.1-12.4); NEUTROPHILS ABSOLUTE AUTO 3.25 K/mm3 (1.96-9.15); NEUTROPHILS PERCENT AUTO 58 % (41-73); Platelet Count 134 K/mm3 (150-400); RDW Coefficient Variation 13.5 % (11.7-14.2); RDW Standard Deviation 45.2 fL (35.1-46.3); Red Blood Cell Count 3.13 M/mm3 (4.30-5.90); White Blood Cell Count 5.57 K/mm3 (4.00-11.30)
[2021-02-08 08:00] LABS: Alanine Aminotransfer (ALT/SGP 36 U/L (12-78); Albumin, Blood 2.3 g/dL (3.4-5.0); Albumin/Globulin Ratio 0.9 (0.8-1.8); Alk Phos 90 U/L (50-136); Anion Gap 3 mmol/L (6-16); Aspartate Aminotrans (AST/SGOT 24 U/L (12-37); Bilirubin, Total 0.2 mg/dL (0.1-1.0); Blood Urea Nitrogen 25 mg/dL (8-24); Bun/Creatinine Ratio 27.3 (12.0-20.0); CO2, Blood 33 mmol/L (21-32); Chloride, Blood 108 mmol/L (98-108); Creatinine, Blood 0.92 mg/dL (0.60-1.20); Globulin, Blood 2.7 g/dL (2.2-4.0); Glomerular Filtration Rate >60 (60-); Glucose, Blood 91 mg/dL (70-99); Potassium, Blood 2.8 mmol/L (3.5-5.5); Sodium, Blood 144 mmol/L (136-145)
--- NOTE | 2021-02-08 17:40 | NUR ---
L anterior lower leg bandaid removed, wound bed appears pink/red and dry, not actively draining. wound cleansed with NS and gauze. Mepilex foam adhesive dressing placed. Pt tolerated well and denied pain/discomfort.
--- NOTE | 2021-02-08 18:11 | NUR ---
SHIFT SUMMARY: Pt is A/O to self, situation, place, but when asked what the year is stated: "2000". Pt is 1 person SBA and using FWW to transfer to bathroom for toileting. Gait is a bit weak/shuffled, but able to transfer to bathroom with SBA. Denies any pain/discomfort. R hand IV site appeared to be leaking this shift and had some blood under dressing, new 20G IV placed RFA, saline locked and secured with clear view, patent and site appears c/d/i; once new IV was placed R hand IV removed with pressure dressing placed. Later, pressure dressing removed and site cleansed with no s/sx of infection/irritation. L anterior leg wound dressing changed from bandaid to mepilex (see prior note for more info). Pt eating puree diet well and tolerating meds with water.
[2021-02-09 04:53] LABS: BASOPHILS ABSOLUTE AUTO 0.04 K/mm3 (0.00-0.23); BASOPHILS PERCENT AUTO 1 % (0-2); EOSINOPHILS ABSOLUTE AUTO 0.28 K/mm3 (0.00-0.68); EOSINOPHILS PERCENT AUTO 3 % (0-6); Hematocrit 33.3 % (37.0-53.0); Hemoglobin 11.1 g/dL (13.5-17.5); IMMATURE GRAN ABSOLUTE AUTO 0.04 K/mm3 (0.00-0.10); IMMATURE GRAN PERCENT AUTO 1 % (0-1); LYMPHOCYTES ABSOLUTE AUTO 1.81 K/mm3 (0.84-5.20); LYMPHOCYTES PERCENT AUTO 21 % (21-46); MONOCYTES ABSOLUTE AUTO 0.67 K/mm3 (0.16-1.47); MONOCYTES PERCENT AUTO 8 % (4-13); Mean Corpuscular HGB 30.7 pg (26.0-34.0); Mean Corpuscular HGB Conc 33.3 g/dL (31.5-36.5); Mean Corpuscular Volume 92 fL (80-100); Mean Platelet Volume 10.2 fL (9.1-12.4); NEUTROPHILS ABSOLUTE AUTO 5.76 K/mm3 (1.96-9.15); NEUTROPHILS PERCENT AUTO 67 % (41-73); Platelet Count 144 K/mm3 (150-400); RDW Coefficient Variation 13.5 % (11.7-14.2); RDW Standard Deviation 46.3 fL (35.1-46.3); Red Blood Cell Count 3.61 M/mm3 (4.30-5.90)
[2021-02-09 05:23] LABS: Albumin, Blood 2.6 g/dL (3.4-5.0); Anion Gap 2 mmol/L (6-16); Blood Urea Nitrogen 25 mg/dL (8-24); Bun/Creatinine Ratio 24.8 (12.0-20.0); CO2, Blood 32 mmol/L (21-32); Calcium, Blood 8.4 mg/dL (8.5-10.1); Chloride, Blood 104 mmol/L (98-108); Creatinine, Blood 1.01 mg/dL (0.60-1.20); Glomerular Filtration Rate >60 (60-); Glucose, Blood 115 mg/dL (70-99); Phosphorus, Blood 2.9 mg/dL (2.5-4.9); Potassium, Blood 3.6 mmol/L (3.5-5.5); Sodium, Blood 138 mmol/L (136-145)
--- NOTE | 2021-02-09 06:49 | NUR ---
SUMMARY NO NEW ISSUES NOTED. PT REMAINS UNSTEADY ON FEET AND COMPLAINS OF WEAKNESS. PT SLEPT WELL T/O SHIFT. CALL LIGHT IN REACH AND BED ALARM ON.
--- NOTE | 2021-02-09 09:20 | NUR ---
PT PLEASANT TALKATIVE. A/O X3. DENIES PAIN THIS AM. H/R REG, NO MURMER NOTED, PER TELE NSR AT 77. LUNGS CLEAR RESP EASY, UNLABORED. ON R.A. BT X4 LAST BM YEST. VOIDS BATHROOM. 1 ASST TO BATHROOM. FWW. BED IN LOW POSITOIN, CALL LITE IN REACH, CALLS APPROP. BED ALARM ON FOR SAFETY JOSE RN STATES SPOTS BLOOD NOTED IN STOOL YEST. HAT PLACED IN COMMODE TO OBSERVE. WILL NOTIFY DR IF ANY BLOOD NOTED.
--- NOTE | 2021-02-09 18:37 | NUR ---
PT PLEASANT TODAY. SON IN TO VISIT. NO C.O PAIN. PT WORKED WITH HIM TODAY. STATES COMING ALONG WELL. NO NEW CONCERNS NOTED TODAY. BED IN LOW POSITION, CALL LITE IN [facility], CALLS APPROP
--- NOTE | 2021-02-09 22:00 | NUR ---
ASSUMED CARE. AOX3, AUTISTIC. ABLE TO ANSWER ALL QUESITONS. LUNG SOUNDS CLEAR. HR SINUS PER TELE. VSS/AFEBRILE. USES WALKER TO GO TO THE BATHROOM. NO PAIN. DENIES ANY SYMPTOMS WHEN ASKED. TRACE EDEMA IN BLE. HE GOT UP TO THE BATHROOM, NO REDNESS ON BOTTOM. DRESSING TO LLE INTAKE. GOT TO BED FOR THE NIGHT. WILL CONTINUE TO MONITOR.
[2021-02-10 04:41] LABS: Hematocrit 33.7 % (37.0-53.0); Hemoglobin 11.2 g/dL (13.5-17.5); Mean Corpuscular HGB 30.9 pg (26.0-34.0); Mean Corpuscular HGB Conc 33.2 g/dL (31.5-36.5); Mean Corpuscular Volume 93 fL (80-100); Mean Platelet Volume 10.4 fL (9.1-12.4); Platelet Count 161 K/mm3 (150-400); RDW Coefficient Variation 13.6 % (11.7-14.2); RDW Standard Deviation 46.2 fL (35.1-46.3); Red Blood Cell Count 3.63 M/mm3 (4.30-5.90); White Blood Cell Count 7.69 K/mm3 (4.00-11.30)
[2021-02-10 05:12] LABS: Albumin, Blood 2.7 g/dL (3.4-5.0); Anion Gap 2 mmol/L (6-16); Blood Urea Nitrogen 23 mg/dL (8-24); Bun/Creatinine Ratio 21.5 (12.0-20.0); CO2, Blood 31 mmol/L (21-32); Calcium, Blood 8.5 mg/dL (8.5-10.1); Chloride, Blood 105 mmol/L (98-108); Creatinine, Blood 1.07 mg/dL (0.60-1.20); Glomerular Filtration Rate >60 (60-); Glucose, Blood 116 mg/dL (70-99); Phosphorus, Blood 2.7 mg/dL (2.5-4.9); Potassium, Blood 4.2 mmol/L (3.5-5.5); Sodium, Blood 138 mmol/L (136-145)
--- NOTE | 2021-02-10 06:24 | NUR ---
SHIFT SUMMARY: AOX3, AUTISTIC, COOPERATIVE, PLEASANT. NO PAIN. LUNGS CLEAR. HR SINUS ON TELE. VSS/AFEBRILE. 1 ASSIST WITH FWW. NO BM LAST NIGHT, SMEARS ON SHEETS, NO BLOOD NOTED. NO PAIN. STATES HE IS "OK". SLEPT WELL DURING THE NIGHT. NO ACUTE CHANGES TO NOTE. CALL LIGHT IN REACH.
--- NOTE | 2021-02-10 11:34 | NUR ---
PT HAD EPISODES OF SHAKING; ABLE TO TALK AND HOLD CONVERSATION WHILE SHAKING. PHYSICAL THERAPIST AT BEDSIDE. VSS. NO NOTED SEIZURE LIKE SYMPTOMS. IT STOPPED AFTER 15 SECONDS. PT SATS WNL. PT STATED HE FELT OKAY AND IT WENT AWAY. NO FEVER NOTED. INFORMED FLOATING OPERATOR WHICH WAS AT BEDSIDE
--- NOTE | 2021-02-10 13:45 | NUR ---
PT DISCHARGED TO [facility] WITH HOMEHEALTH. TRANSPORTED [facility]. PT DISCHARGE PAPER GIVEN AND EDUCATED ABOUT MEDS; GIVEN REPORT TO RN AT [facility], AND FAXED CURRENT MED LIST. PT INFORMED ABOUT THE UPCOMING APPOINTMENT ON TUESDAY FOR PCP. IV DC'D. VALUABLE ITEMS WITH PT. VSS.
== END 2021-02-10 13:26 | disposition home or self-care (01) | DRG 641 ==
LOC: ER 17:17 → MEDS 17:18
PROVIDERS: Emergency Medicine; Family Medicine; Internal Medicine; Nurse Practitioner Acute Care; ADMIT Internal Medicine
DX: E87.6 Hypokalemia (principal); N17.9 Acute kidney failure, unspecified; F84.0 Autistic disorder; R65.10 Systemic inflammatory response syndrome (SIRS) of non-infectious origin without acute organ dysfunction; I49.3 Ventricular premature depolarization; D50.9 Iron deficiency anemia, unspecified; I12.9 Hypertensive chronic kidney disease with stage 1 through stage 4 chronic kidney disease, or unspecified chronic kidney disease; E87.3 Alkalosis; R09.02 Hypoxemia; N40.0 Benign prostatic hyperplasia without lower urinary tract symptoms; T50.2X5A Adverse effect of carbonic-anhydrase inhibitors, benzothiadiazides and other diuretics, initial encounter; N18.30 Chronic kidney disease, stage 3 unspecified; E86.0 Dehydration; F39 Unspecified mood [affective] disorder; X58.XXXA Exposure to other specified factors, initial encounter; S81.802A Unspecified open wound, left lower leg, initial encounter; E78.5 Hyperlipidemia, unspecified; E86.9 Volume depletion, unspecified; Z86.73 Personal history of transient ischemic attack (TIA), and cerebral infarction without residual deficits; Z98.890 Other specified postprocedural states; Z89.422 Acquired absence of other left toe(s); Z79.899 Other long term (current) drug therapy; Z79.01 Long term (current) use of anticoagulants; Z86.711 Personal history of pulmonary embolism
CPT/HCPCS: 36415; 71045; 80053; 80069; 81001; 83735; 83880; 84100; 84132; 84443; 84484; 84550; 85025; 85027; 93005; 93010; 96365; 96367; 96372; 96375; 97110; 97161; 97166; 97535; 99285-25; A9270; G0378; J0696; J1644; J3475; J3480; J7030; J7120

== ENCOUNTER 2021-02-19 20:53 | Emergency (ER) | payer OTHER ==
[~2021-02-19] VITALS: Ht 175.3 cm; Wt 81.2 kg
[~2021-02-19 20:53] MED LIST changes: +FLUT.05NI; +FURO80 PO; +KETO15TC TOP; +LOSA25 PO; +METO5 PO; +POTCHL20ER PO; +SPIR25 PO; +VITAMIN D5000 UNIT PO
[2021-02-19 21:17] LABS: BASOPHILS ABSOLUTE AUTO 0.05 K/mm3 (0.00-0.23); BASOPHILS PERCENT AUTO 1 % (0-2); EOSINOPHILS ABSOLUTE AUTO 0.26 K/mm3 (0.00-0.68); EOSINOPHILS PERCENT AUTO 3 % (0-6); Hematocrit 37.8 % (37.0-53.0); Hemoglobin 12.7 g/dL (13.5-17.5); IMMATURE GRAN ABSOLUTE AUTO 0.04 K/mm3 (0.00-0.10); IMMATURE GRAN PERCENT AUTO 0 % (0-1); LYMPHOCYTES ABSOLUTE AUTO 2.09 K/mm3 (0.84-5.20); LYMPHOCYTES PERCENT AUTO 23 % (21-46); MONOCYTES ABSOLUTE AUTO 0.76 K/mm3 (0.16-1.47); MONOCYTES PERCENT AUTO 8 % (4-13); Mean Corpuscular HGB Conc 33.6 g/dL (31.5-36.5); Mean Corpuscular Volume 92 fL (80-100); Mean Platelet Volume 10.1 fL (9.1-12.4); NEUTROPHILS ABSOLUTE AUTO 5.93 K/mm3 (1.96-9.15); NEUTROPHILS PERCENT AUTO 65 % (41-73); Platelet Count 207 K/mm3 (150-400); RDW Coefficient Variation 14.1 % (11.7-14.2); RDW Standard Deviation 47.6 fL (35.1-46.3); White Blood Cell Count 9.13 K/mm3 (4.00-11.30)
[2021-02-19 21:31] LABS: Alanine Aminotransfer (ALT/SGP 65 U/L (12-78); Albumin, Blood 3.2 g/dL (3.4-5.0); Albumin/Globulin Ratio 0.9 (0.8-1.8); Alk Phos 141 U/L (50-136); Anion Gap 1 mmol/L (6-16); Aspartate Aminotrans (AST/SGOT 32 U/L (12-37); Bilirubin, Total 0.2 mg/dL (0.1-1.0); Blood Urea Nitrogen 15 mg/dL (8-24); Bun/Creatinine Ratio 15.9 (12.0-20.0); CO2, Blood 31 mmol/L (21-32); Calcium, Blood 8.4 mg/dL (8.5-10.1); Chloride, Blood 108 mmol/L (98-108); Creatinine, Blood 0.94 mg/dL (0.60-1.20); Globulin, Blood 3.6 g/dL (2.2-4.0); Glomerular Filtration Rate >60 (60-); Glucose, Blood 124 mg/dL (70-99); Potassium, Blood 4.4 mmol/L (3.5-5.5); Sodium, Blood 140 mmol/L (136-145); Total Protein, Blood 6.8 g/dL (6.4-8.2)
== END 2021-02-19 22:19 | disposition home or self-care (01) ==
LOC: ER 20:53
PROVIDERS: Emergency Medicine
DX: M25.519 Pain in unspecified shoulder (principal); I12.9 Hypertensive chronic kidney disease with stage 1 through stage 4 chronic kidney disease, or unspecified chronic kidney disease; N18.30 Chronic kidney disease, stage 3 unspecified; Z86.73 Personal history of transient ischemic attack (TIA), and cerebral infarction without residual deficits
CPT/HCPCS: 36415; 80053; 85025; 93005; 93010; 99284-25

== ENCOUNTER 2021-04-04 22:17 | Emergency (ER) | payer OTHER ==
[~2021-04-04] VITALS: Ht 175.3 cm; Wt 77.1 kg
[2021-04-04] MEDS ORDERED: CEPH500 PO (22:39)
[2021-04-04] MEDS ORDERED: METO5 PO (22:41)
[2021-04-04] MEDS ORDERED: Bactrim Ds Tab1 EACH PO (22:53)
== END 2021-04-05 01:00 | disposition home or self-care (01) ==
LOC: ER 22:17
DX: L08.9 Local infection of the skin and subcutaneous tissue, unspecified (principal); S50.312A Abrasion of left elbow, initial encounter; Z79.899 Other long term (current) drug therapy
CPT/HCPCS: 99283; A9270

== ENCOUNTER → 2021-11-25 | Outpatient (CLI) | payer OTHER ==
[~2021-11-25] MED LIST changes: +CEPH500 PO
[2021-11-25 12:18] LABS: BASOPHILS ABSOLUTE AUTO 0.04 K/mm3 (0.00-0.23); BASOPHILS PERCENT AUTO 1 % (0-2); EOSINOPHILS ABSOLUTE AUTO 0.07 K/mm3 (0.00-0.68); EOSINOPHILS PERCENT AUTO 1 % (0-6); Hematocrit 38.6 % (37.0-53.0); Hemoglobin 12.8 g/dL (13.5-17.5); IMMATURE GRAN ABSOLUTE AUTO 0.03 K/mm3 (0.00-0.10); IMMATURE GRAN PERCENT AUTO 0 % (0-1); LYMPHOCYTES ABSOLUTE AUTO 1.48 K/mm3 (0.84-5.20); LYMPHOCYTES PERCENT AUTO 20 % (21-46); MONOCYTES ABSOLUTE AUTO 0.54 K/mm3 (0.16-1.47); MONOCYTES PERCENT AUTO 7 % (4-13); Mean Corpuscular HGB 30.5 pg (26.0-34.0); Mean Corpuscular HGB Conc 33.2 g/dL (31.5-36.5); Mean Corpuscular Volume 92 fL (80-100); Mean Platelet Volume 10.6 fL (9.1-12.4); NEUTROPHILS ABSOLUTE AUTO 5.17 K/mm3 (1.96-9.15); NEUTROPHILS PERCENT AUTO 71 % (41-73); Platelet Count 196 K/mm3 (150-400); RDW Coefficient Variation 13.2 % (11.7-14.2); RDW Standard Deviation 44.1 fL (35.1-46.3); Red Blood Cell Count 4.19 M/mm3 (4.30-5.90); White Blood Cell Count 7.33 K/mm3 (4.00-11.30)
[2021-11-25 12:28] LABS: Albumin, Blood 3.5 g/dL (3.4-5.0); Albumin/Globulin Ratio 1.1 (0.8-1.8); Bilirubin, Total 0.4 mg/dL (0.1-1.0); Bun/Creatinine Ratio 22.1 (12.0-20.0); Calcium, Blood 8.9 mg/dL (8.5-10.1); Creatinine, Blood 1.45 mg/dL (0.60-1.20); Globulin, Blood 3.2 g/dL (2.2-4.0); Potassium, Blood 3.3 mmol/L (3.5-5.5); Total Protein, Blood 6.7 g/dL (6.4-8.2)
== END | disposition home or self-care (01) ==
LOC: LAB SHORT 10:41
PROVIDERS: Family Medicine
DX: I50.9 Heart failure, unspecified (principal); R73.01 Impaired fasting glucose
CPT/HCPCS: 80053; 83036; 83880; 85025

== ENCOUNTER 2021-12-20 00:23 | Emergency (ER) | payer OTHER ==
[~2021-12-20] VITALS: Ht 177.8 cm; Wt 74.8 kg
[2021-12-20 00:49] LABS: Source, Urine Straight Cath
[2021-12-20 00:58] LABS: Bilirubin, Urine Neg (Neg); Blood, Urine Neg (Neg); Glucose Qualitative, Urine Neg (Neg); Ketones, Urine Neg (Neg); Leukocyte Esterase, Urine Neg (Neg); Nitrite, Urine Neg (Neg); Protein, Urine Neg (Neg); Urobilinogen, Urine NORM (Normal)
[2021-12-20 01:01] LABS: Appearance, Urine Clear (Clear); Color, Urine Yellow (P-Yellow)
== END 2021-12-20 07:35 | disposition home or self-care (01) ==
LOC: ER 00:23
PROVIDERS: Emergency Medicine
DX: K59.00 Constipation, unspecified (principal); R33.9 Retention of urine, unspecified; I10 Essential (primary) hypertension; Z79.899 Other long term (current) drug therapy
CPT/HCPCS: 51702; 51798; 74018; 81003; 99283-25; A9270

== ENCOUNTER → 2022-04-28 | Outpatient (CLI) | payer OTHER ==
[2022-04-28 19:21] LABS: BASOPHILS ABSOLUTE AUTO 0.05 K/mm3 (0.00-0.23); BASOPHILS PERCENT AUTO 1 % (0-2); EOSINOPHILS ABSOLUTE AUTO 0.14 K/mm3 (0.00-0.68); EOSINOPHILS PERCENT AUTO 2 % (0-6); Hematocrit 35.3 % (37.0-53.0); Hemoglobin 11.2 g/dL (13.5-17.5); IMMATURE GRAN ABSOLUTE AUTO 0.04 K/mm3 (0.00-0.10); IMMATURE GRAN PERCENT AUTO 1 % (0-1); LYMPHOCYTES ABSOLUTE AUTO 1.93 K/mm3 (0.84-5.20); LYMPHOCYTES PERCENT AUTO 26 % (21-46); MONOCYTES ABSOLUTE AUTO 0.68 K/mm3 (0.16-1.47); MONOCYTES PERCENT AUTO 9 % (4-13); Mean Corpuscular HGB 31.1 pg (26.0-34.0); Mean Corpuscular HGB Conc 31.7 g/dL (31.5-36.5); Mean Corpuscular Volume 98 fL (80-100); NEUTROPHILS ABSOLUTE AUTO 4.59 K/mm3 (1.96-9.15); NEUTROPHILS PERCENT AUTO 62 % (41-73); Platelet Count 183 K/mm3 (150-400); RDW Coefficient Variation 12.8 % (11.7-14.2); RDW Standard Deviation 45.6 fL (35.1-46.3); White Blood Cell Count 7.43 K/mm3 (4.00-11.30)
[2022-04-28 20:17] LABS: Alanine Aminotransfer (ALT/SGP 27 U/L (12-78); Albumin/Globulin Ratio 0.9 (0.8-1.8); Alk Phos 100 U/L (50-136); Anion Gap 4 mmol/L (6-16); Aspartate Aminotrans (AST/SGOT 20 U/L (12-37); Bilirubin, Total 0.2 mg/dL (0.1-1.0); Blood Urea Nitrogen 18 mg/dL (8-24); Bun/Creatinine Ratio 17.5 (12.0-20.0); CO2, Blood 27 mmol/L (21-32); Calcium, Blood 9.1 mg/dL (8.5-10.1); Chloride, Blood 109 mmol/L (98-108); Creatinine, Blood 1.03 mg/dL (0.60-1.20); Dilantin (Phenytoin), Total 10.5 ug/mL (10.0-20.0); Globulin, Blood 3.2 g/dL (2.2-4.0); Glomerular Filtration Rate 73 (60-); Glucose, Blood 90 mg/dL (70-99); Potassium, Blood 4.7 mmol/L (3.5-5.5); Sodium, Blood 140 mmol/L (136-145); Total Protein, Blood 6.2 g/dL (6.4-8.2)
== END | disposition home or self-care (01) ==
LOC: LAB SHORT 15:51
PROVIDERS: Family Medicine
DX: I11.0 Hypertensive heart disease with heart failure (principal); E78.2 Mixed hyperlipidemia; D64.9 Anemia, unspecified; I50.9 Heart failure, unspecified; R56.9 Unspecified convulsions
CPT/HCPCS: 80053; 80185; 83880; 85025

== ENCOUNTER 2022-05-14 15:36 | Emergency (ER) | payer OTHER ==
[~2022-05-14] VITALS: Ht 175.3 cm; Wt 72.6 kg
[2022-05-14 16:23] LABS: Source, Urine Foley catheter
[2022-05-14 16:27] LABS: Appearance, Urine Clear (Clear); Bilirubin, Urine Neg (Neg); Blood, Urine Neg (Neg); Color, Urine Yellow (P-Yellow); Glucose Qualitative, Urine Neg (Neg); Ketones, Urine Neg (Neg); Leukocyte Esterase, Urine Neg (Neg); Nitrite, Urine Neg (Neg); Protein, Urine Neg (Neg); Specific Gravity, Urine 1.015 (1.003-1.022); Urobilinogen, Urine NORM (Normal)
== END 2022-05-14 20:08 | disposition home or self-care (01) ==
LOC: ER 15:36
PROVIDERS: Emergency Medicine
DX: R33.9 Retention of urine, unspecified (principal); K59.00 Constipation, unspecified; I10 Essential (primary) hypertension
CPT/HCPCS: 51702; 81003; A9270

== ENCOUNTER 2022-11-01 10:46 | Emergency (ER) | payer OTHER ==
[~2022-11-01] VITALS: Ht 175.3 cm; Wt 68.0 kg
[2022-11-01 12:02] LABS: BASOPHILS ABSOLUTE AUTO 0.05 K/mm3 (0.00-0.23); BASOPHILS PERCENT AUTO 0 % (0-2); EOSINOPHILS ABSOLUTE AUTO 0.04 K/mm3 (0.00-0.68); EOSINOPHILS PERCENT AUTO 0 % (0-6); Hematocrit 36.7 % (37.0-53.0); Hemoglobin 12.4 g/dL (13.5-17.5); IMMATURE GRAN ABSOLUTE AUTO 0.05 K/mm3 (0.00-0.10); IMMATURE GRAN PERCENT AUTO 0 % (0-1); LYMPHOCYTES ABSOLUTE AUTO 1.42 K/mm3 (0.84-5.20); LYMPHOCYTES PERCENT AUTO 11 % (21-46); MONOCYTES PERCENT AUTO 6 % (4-13); Mean Corpuscular HGB 31.6 pg (26.0-34.0); Mean Corpuscular HGB Conc 33.8 g/dL (31.5-36.5); Mean Corpuscular Volume 93 fL (80-100); Mean Platelet Volume 10.6 fL (9.1-12.4); NEUTROPHILS ABSOLUTE AUTO 10.66 K/mm3 (1.96-9.15); NEUTROPHILS PERCENT AUTO 82 % (41-73); Platelet Count 198 K/mm3 (150-400); RDW Coefficient Variation 12.6 % (11.7-14.2); RDW Standard Deviation 43.9 fL (35.1-46.3); Red Blood Cell Count 3.93 M/mm3 (4.30-5.90); White Blood Cell Count 13.02 K/mm3 (4.00-11.30)
[2022-11-01 12:04] LABS: Albumin, Blood 3.3 g/dL (3.4-5.0); Albumin/Globulin Ratio 0.9 (0.8-1.8); Bilirubin, Total 0.1 mg/dL (0.1-1.0); Bun/Creatinine Ratio 32.7 (12.0-20.0); Calcium, Blood 9.3 mg/dL (8.5-10.1); Creatinine, Blood 1.04 mg/dL (0.60-1.20); Globulin, Blood 3.6 g/dL (2.2-4.0); Potassium, Blood 4.4 mmol/L (3.5-5.5); Total Protein, Blood 6.9 g/dL (6.4-8.2)
[2022-11-01] MEDS ORDERED: CALC.25 PO (12:36)
[2022-11-01] MEDS ORDERED: Aldactone25 MG PO (12:38)
[2022-11-01] MEDS ORDERED: PHENYTOIN SODI300 MG PO (12:41)
[2022-11-01 18:05] LABS: Source, Urine Clean Catch
[2022-11-01 18:11] LABS: Appearance, Urine Hazy (Clear); Bilirubin, Urine Neg (Neg); Blood, Urine 5+ (Neg); Color, Urine Yellow (P-Yellow); Glucose Qualitative, Urine Neg (Neg); Ketones, Urine Neg (Neg); Leukocyte Esterase, Urine 3+ (Neg); Nitrite, Urine Neg (Neg); Protein, Urine Neg (Neg); Urobilinogen, Urine NORM (Normal)
[2022-11-01 18:19] LABS: Hyaline Casts 0-2 /lpf (0-2)
[2022-11-01 18:20] LABS: Bacteria Few /hpf; Red Blood Cells, Urine 50-100 /hpf (0-2); Squamous Epithelial Cells Rare /hpf (Few)
[2022-11-02] MEDS ORDERED: CEFD300 PO (00:36)
== END 2022-11-02 01:30 | disposition home or self-care (01) ==
LOC: ER 10:46
PROVIDERS: Student in an Organized Health Care Education/Training Program
DX: K59.00 Constipation, unspecified (principal); R31.9 Hematuria, unspecified; N39.0 Urinary tract infection, site not specified; R33.9 Retention of urine, unspecified; K62.89 Other specified diseases of anus and rectum; R10.30 Lower abdominal pain, unspecified; I10 Essential (primary) hypertension; F03.90 Unspecified dementia, unspecified severity, without behavioral disturbance, psychotic disturbance, mood disturbance, and anxiety; Z79.899 Other long term (current) drug therapy; Z79.02 Long term (current) use of antithrombotics/antiplatelets
CPT/HCPCS: 36415; 51701; 51702; 74177; 80053; 81001; 82272; 85025; 87077; 87086; 87147; 87186; 93005; 93010; 96374-59; 96375-59; 99284-25; A9270; J0696; J1170; J1885; J2765; Q9967

== ENCOUNTER 2022-11-29 11:49 | Emergency (ER) | payer OTHER ==
[~2022-11-29] VITALS: Ht 175.3 cm; Wt 72.6 kg
[~2022-11-29 11:49] MED LIST changes: +Aldactone25 MG PO; +CALC.25 PO; +CEFD300 PO
[2022-11-29] MEDS ORDERED: CALC.25 PO (12:35)
[2022-11-29] MEDS ORDERED: DOCU100 PO (12:36)
[2022-11-29] MEDS ORDERED: FURO40 PO (12:37)
[2022-11-29] MEDS ORDERED: GABA100 PO (12:39)
[2022-11-29] MEDS ORDERED: Dilantin 100 m100 MG PO (12:42)
[2022-11-29] MEDS ORDERED: K-Dur20 MEQ PO (12:43)
[2022-11-29] MEDS ORDERED: MIRALAX17 GM PO (12:43)
[2022-11-29] MEDS ORDERED: SILVADENE20 G1 (12:44)
[2022-11-29] MEDS ORDERED: SPIR25 PO (12:44)
== END 2022-11-29 16:50 | disposition home or self-care (01) ==
LOC: ER 11:49
DX: K56.41 Fecal impaction (principal); I10 Essential (primary) hypertension; Z99.3 Dependence on wheelchair; Z79.899 Other long term (current) drug therapy
CPT/HCPCS: 99283

== ENCOUNTER 2023-02-28 20:48 | Emergency (ER) | payer OTHER ==
[~2023-02-28] VITALS: Ht 175.3 cm; Wt 63.5 kg
[~2023-02-28 20:48] MED LIST changes: +Dilantin 100 m100 MG PO; +K-Dur20 MEQ PO; +MIRALAX17 GM PO; +SILVADENE20 G1
[2023-03-01 00:37] VITALS: BP 122/71
== END 2023-03-01 00:36 | disposition home or self-care (01) ==
LOC: ER 20:48
DX: K59.00 Constipation, unspecified (principal); I10 Essential (primary) hypertension; F03.90 Unspecified dementia, unspecified severity, without behavioral disturbance, psychotic disturbance, mood disturbance, and anxiety; N40.0 Benign prostatic hyperplasia without lower urinary tract symptoms; Z86.73 Personal history of transient ischemic attack (TIA), and cerebral infarction without residual deficits; Z79.899 Other long term (current) drug therapy; Z79.02 Long term (current) use of antithrombotics/antiplatelets
CPT/HCPCS: 99283

== ENCOUNTER 2023-09-11 14:01 | Emergency (ER) | payer OTHER ==
[~2023-09-11] VITALS: Ht 175.3 cm; Wt 70.3 kg
[2023-09-11 14:48] LABS: Source, Urine Foley catheter
[2023-09-11 14:52] LABS: Appearance, Urine Clear (Clear); Bilirubin, Urine Neg (Neg); Blood, Urine 1+ (Neg); Color, Urine Yellow (P-Yellow); Glucose Qualitative, Urine Neg (Neg); Ketones, Urine Neg (Neg); Leukocyte Esterase, Urine Neg (Neg); Nitrite, Urine Neg (Neg); Protein, Urine Neg (Neg); Specific Gravity, Urine 1.015 (1.003-1.022); Urobilinogen, Urine NORM (Normal)
[2023-09-11 14:53] LABS: BASOPHILS ABSOLUTE AUTO 0.04 K/mm3 (0.00-0.23); BASOPHILS PERCENT AUTO 0 % (0-2); EOSINOPHILS ABSOLUTE AUTO 0.03 K/mm3 (0.00-0.68); EOSINOPHILS PERCENT AUTO 0 % (0-6); Hematocrit 36.7 % (37.0-53.0); Hemoglobin 12.2 g/dL (13.5-17.5); IMMATURE GRAN ABSOLUTE AUTO 0.06 K/mm3 (0.00-0.10); IMMATURE GRAN PERCENT AUTO 0 % (0-1); LYMPHOCYTES ABSOLUTE AUTO 1.15 K/mm3 (0.84-5.20); LYMPHOCYTES PERCENT AUTO 8 % (21-46); MONOCYTES PERCENT AUTO 6 % (4-13); Mean Corpuscular HGB 30.9 pg (26.0-34.0); Mean Corpuscular HGB Conc 33.2 g/dL (31.5-36.5); Mean Corpuscular Volume 93 fL (80-100); Mean Platelet Volume 9.9 fL (9.1-12.4); NEUTROPHILS ABSOLUTE AUTO 11.85 K/mm3 (1.96-9.15); NEUTROPHILS PERCENT AUTO 85 % (41-73); Platelet Count 209 K/mm3 (150-400); RDW Coefficient Variation 12.7 % (11.7-14.2); RDW Standard Deviation 43.5 fL (35.1-46.3); Red Blood Cell Count 3.95 M/mm3 (4.30-5.90); White Blood Cell Count 13.93 K/mm3 (4.00-11.30)
[2023-09-11 15:10] LABS: Albumin/Globulin Ratio 0.8 (0.8-1.8); Bilirubin, Total 0.1 mg/dL (0.1-1.0); Bun/Creatinine Ratio 27.8 (12.0-20.0); Calcium, Blood 8.7 mg/dL (8.5-10.1); Creatinine, Blood 1.26 mg/dL (0.60-1.20); Globulin, Blood 3.9 g/dL (2.2-4.0); Potassium, Blood 4.1 mmol/L (3.5-5.5); Total Protein, Blood 6.9 g/dL (6.4-8.2)
[2023-09-11 15:12] LABS: Bacteria Rare /hpf; Squamous Epithelial Cells Not Seen /hpf (Few); White Blood Cells, Urine 0-2 /hpf (0-5)
[2023-09-11 16:45] VITALS: BP 105/87
== END 2023-09-11 17:07 | disposition home or self-care (01) ==
LOC: ER 14:01
PROVIDERS: Emergency Medicine
DX: N40.1 Benign prostatic hyperplasia with lower urinary tract symptoms (principal); R33.8 Other retention of urine; K59.00 Constipation, unspecified; I10 Essential (primary) hypertension; F03.90 Unspecified dementia, unspecified severity, without behavioral disturbance, psychotic disturbance, mood disturbance, and anxiety; Z79.01 Long term (current) use of anticoagulants; Z79.899 Other long term (current) drug therapy; Z79.51 Long term (current) use of inhaled steroids
CPT/HCPCS: 51702; 74018; 80053; 81001; 85025; 99284-25; A9270

== ENCOUNTER 2023-09-12 02:23 | Emergency (ER) | payer OTHER ==
[~2023-09-12] VITALS: Ht 175.3 cm; Wt 70.3 kg
[2023-09-12 02:32] VITALS: BP 104/84
[2023-09-13] MEDS ORDERED: XOLIDO118 ML TOP (14:28)
== END 2023-09-12 08:19 | disposition home or self-care (01) ==
LOC: ER 02:23
DX: K59.00 Constipation, unspecified (principal); R10.9 Unspecified abdominal pain; I10 Essential (primary) hypertension; N40.0 Benign prostatic hyperplasia without lower urinary tract symptoms; F03.90 Unspecified dementia, unspecified severity, without behavioral disturbance, psychotic disturbance, mood disturbance, and anxiety; Z79.899 Other long term (current) drug therapy; Z79.02 Long term (current) use of antithrombotics/antiplatelets; Z86.73 Personal history of transient ischemic attack (TIA), and cerebral infarction without residual deficits
CPT/HCPCS: 99284

== ENCOUNTER 2023-09-13 12:20 | Emergency (ER) | payer OTHER ==
[~2023-09-13] VITALS: Ht 175.3 cm; Wt 70.3 kg
[2023-09-13 13:35] LABS: BASOPHILS ABSOLUTE AUTO 0.03 K/mm3 (0.00-0.23); BASOPHILS PERCENT AUTO 0 % (0-2); EOSINOPHILS ABSOLUTE AUTO 0.09 K/mm3 (0.00-0.68); EOSINOPHILS PERCENT AUTO 1 % (0-6); Hematocrit 34.1 % (37.0-53.0); Hemoglobin 11.6 g/dL (13.5-17.5); IMMATURE GRAN ABSOLUTE AUTO 0.04 K/mm3 (0.00-0.10); IMMATURE GRAN PERCENT AUTO 0 % (0-1); LYMPHOCYTES ABSOLUTE AUTO 1.28 K/mm3 (0.84-5.20); LYMPHOCYTES PERCENT AUTO 11 % (21-46); MONOCYTES ABSOLUTE AUTO 0.76 K/mm3 (0.16-1.47); MONOCYTES PERCENT AUTO 7 % (4-13); Mean Corpuscular HGB 31.4 pg (26.0-34.0); Mean Corpuscular Volume 92 fL (80-100); NEUTROPHILS ABSOLUTE AUTO 9.21 K/mm3 (1.96-9.15); NEUTROPHILS PERCENT AUTO 81 % (41-73); Platelet Count 187 K/mm3 (150-400); RDW Coefficient Variation 12.7 % (11.7-14.2); RDW Standard Deviation 42.5 fL (35.1-46.3); White Blood Cell Count 11.41 K/mm3 (4.00-11.30)
[2023-09-13 13:42] LABS: Albumin, Blood 2.8 g/dL (3.4-5.0); Albumin/Globulin Ratio 0.8 (0.8-1.8); Bilirubin, Total 0.2 mg/dL (0.1-1.0); Bun/Creatinine Ratio 29.1 (12.0-20.0); Calcium, Blood 8.5 mg/dL (8.5-10.1); Creatinine, Blood 1.1 mg/dL (0.60-1.20); Globulin, Blood 3.6 g/dL (2.2-4.0); Potassium, Blood 3.9 mmol/L (3.5-5.5); Total Protein, Blood 6.4 g/dL (6.4-8.2)
[2023-09-13] MEDS ORDERED: XOLIDO118 ML TOP (14:28)
[2023-09-13 15:00] VITALS: BP 143/64
== END 2023-09-13 15:16 | disposition home or self-care (01) ==
LOC: ER 12:20
PROVIDERS: Student in an Organized Health Care Education/Training Program
DX: K62.89 Other specified diseases of anus and rectum (principal); K59.00 Constipation, unspecified; I10 Essential (primary) hypertension; F03.90 Unspecified dementia, unspecified severity, without behavioral disturbance, psychotic disturbance, mood disturbance, and anxiety; N40.0 Benign prostatic hyperplasia without lower urinary tract symptoms; Z79.899 Other long term (current) drug therapy; Z79.01 Long term (current) use of anticoagulants
CPT/HCPCS: 51798; 74177; 80053; 85025; 99284-25; A9270; J1885; J7030; Q9967

== ENCOUNTER → 2024-05-29 | Outpatient (CLI) | payer OTHER ==
[~2024-05-29] MED LIST changes: +XOLIDO118 ML TOP
[2024-05-29 15:01] LABS: Microalb/Creat Ratio UR, Rand Unable to Calculate mg/g (0.000-30.000); Microalbumin, Random Urine <5.000 mg/L (0.000-20.000)
== END ==
LOC: LAB SHORT 12:08 → LAB 12:08
PROVIDERS: Physician Assistant
DX: E11.22 Type 2 diabetes mellitus with diabetic chronic kidney disease (principal); E11.51 Type 2 diabetes mellitus with diabetic peripheral angiopathy without gangrene
CPT/HCPCS: 82043; 82570

== ENCOUNTER → 2024-07-03 | Outpatient (CLI) | payer OTHER ==
[2024-07-03 16:27] LABS: Appearance, Urine Clear (Clear); Bilirubin, Urine Neg (Neg); Blood, Urine Neg (Neg); Color, Urine Yellow (P-Yellow); Glucose Qualitative, Urine Neg (Neg); Ketones, Urine Neg (Neg); Leukocyte Esterase, Urine Neg (Neg); Nitrite, Urine Neg (Neg); Protein, Urine Neg (Neg); Urobilinogen, Urine NORM (Normal); pH, Urine 6.5 (5.0-8.0)
== END ==
LOC: LAB SHORT 15:30 → LAB 15:30
PROVIDERS: Physician Assistant
DX: N39.0 Urinary tract infection, site not specified (principal)
CPT/HCPCS: 81003; 87086

== ENCOUNTER 2025-04-02 22:02 | Emergency (ER) | payer OTHER ==
[~2025-04-02] VITALS: Ht 175.3 cm; Wt 62.6 kg
[2025-04-03 02:55] VITALS: BP 122/63
== END 2025-04-03 02:56 | disposition home or self-care (01) ==
LOC: ER 22:02
DX: S01.01XA Laceration without foreign body of scalp, initial encounter (principal); I10 Essential (primary) hypertension; W06.XXXA Fall from bed, initial encounter; Z86.73 Personal history of transient ischemic attack (TIA), and cerebral infarction without residual deficits; Z79.51 Long term (current) use of inhaled steroids; Z79.899 Other long term (current) drug therapy
CPT/HCPCS: 12011; 70450; 71046; 72125; 72170; 99284-25